=== PATIENT | female | born 1955 | race Caucasian/White ===

== ENCOUNTER 2017-01-12 06:25 | Day surgery (SDC) | payer OTHER ==
--- NOTE | 2017-01-01 09:17 | HP ---
HISTORY AND PHYSICAL: DATE OF SURGERY/ADMISSION: 01/12/17 [facility] DATE OF OFFICE VISIT: 12/28/16 ATTENDING SURGEON: Dr. Poon. (DICTATED BY CHRISTINE AGUILAR) PROCEDURE: Left carpal tunnel release. CHIEF COMPLAINT: Left hand pain. HISTORY OF PRESENT ILLNESS: The patient is a pleasant 61-year-old female with a known history of carpal tunnel in her left hand, who has failed conservative treatments such as brace, NSAIDs, and has elected to undergo left carpal tunnel release by Dr. Poon on 01/12/17. PAST MEDICAL HISTORY: 1. Hypothyroidism. 2. Elevated cholesterol. 3. GERD. 4. Generalized osteoarthritis. PAST SURGICAL HISTORY: 1. Complex medial meniscal tear, right. 2. Tubal ligation. 3. Ear tubes. 4. Appendectomy. MEDICATIONS: 1. Naproxen 500 mg 1 tablet by mouth p.r.n. b.i.d. 2. Knee high compression stockings. 3. Levothyroxine 75 mcg 1 tablet q.a.m. 4. Lovastatin 20 mg p.o. daily. 5. 50 mg one-half tablet daily at bedtime. ALLERGIES: SULFA DRUGS. FAMILY HISTORY: Mother alive and well. Father due to heart disease. SOCIAL HISTORY: Positive for tobacco use approximately one-half pack per week. Negative for alcohol use. REVIEW OF SYSTEMS: General: Negative for fever, chills, or night sweats. No difficulty with anesthesia. HEENT: Negative for headache, lightheadedness, or syncopal episodes. Integument: Negative for abrasions, lesions, or open wounds or sores. Cardiothoracic: Negative for hypertension, chest pain. Positive for elevated cholesterol. Pulmonary: Negative for SOB, chronic cough , or COPD. GI: Negative for nausea, vomiting, constipation, or diarrhea. Positive for GERD. : Negative for nocturia, urinary frequency, urgency. No history of UTIs or kidney problems. Musculoskeletal: Positive for generalized arthritis and back pain. Positive for left hand pain. Neuro: Positive for paraesthesias and numbness on the left hand. Hematologic: Negative for bruising, anemia, excessive bleeding, or DVT. Endocrine: Positive for thyroid. Negative for diabetes. Infectious Disease: Negative for MRSA, hepatitis C, or HIV. PHYSICAL EXAMINATION GENERAL: Well appearing, in no acute distress. Alert and oriented x3. VITAL SIGNS: Height 64 inches, weight 174 pounds, pulse 88, blood pressure 130/ 90. Respirations 18, temperature 96.7, BMI of 29.9. CARDIO: Regular rate and rhythm. No murmurs, gallops or rubs. PULMONARY: Lungs clear to auscultation bilaterally. No crackles, rhonchi or wheezes. ABDOMEN: Soft, nontender, nondistended. No CVA tenderness bilaterally. NEUROLOGIC: Alert and oriented x3. Cranial nerves grossly intact. Sensation intact to light touch in bilateral upper extremities. MUSCULOSKELETAL: Radial and ulnar pulses 3+ bilaterally. Good pharmacist manager strength bilaterally. Full range of motion in bilateral thumbs. Cap refill less than 2 seconds bilaterally. IMPRESSION: The patient is a 61-year-old female who has failed conservative measures and has elected to undergo left carpal tunnel release by Dr. Poon on 01/12/17. Scripts for [place] and Colace were sent to patient's pharmacy for postoperative pain management. She will follow up with Dr. Poon in approximately 10 days postoperatively for suture removal and wound check. She has no other questions or concerns. CHRISTINE AGUILAR [id number]/[facility] #: [id number] MTDD
[~2017-01-12 06:25] MED LIST: Buffered Lidocaine 0.9% SYRIN* 5 ML/SYR SYRINGE INTRADERM ONE
[2017-01-12] MEDS ORDERED: Lidocaine 2% PF * 5 ML VIAL ONE (07:08)
[2017-01-12] MEDS ORDERED: Propofol* 10 MG/ML 20 ML BTL IV PUSH ONE (07:08)
[2017-01-12] MEDS ORDERED: fentaNYL* 50 MCG/ML 2 ML VIAL (100 MCG VIAL) ONE (07:08)
[2017-01-12] MEDS ORDERED: Lidocaine 1% INJ* 10 MG/ML 30 ML SDV ONE (07:20)
[2017-01-12 08:25] VITALS: BP 137/77
--- NOTE | 2017-01-13 06:32 | OP ---
DATE OF OPERATION: 01/12/17 [facility] DATE OF : 59 SURGEON: Dilia Poon MD [employer] OPERATOR: CHRISTINE Matute ANESTHESIA: Local MAC. PRE-OP DIAGNOSIS: Left carpal tunnel syndrome. POST-OP DIAGNOSIS: Left carpal tunnel syndrome. OPERATIVE PROCEDURE: Left carpal tunnel release. ESTIMATED BLOOD LOSS: Zero. TOURNIQUET TIME: About 5 minutes. INDICATIONS FOR PROCEDURE: Anabel is a 61-year-old woman with numbness and tingling in the median nerve distribution of her left hand. She presents for the left carpal tunnel release. DESCRIPTION OF PROCEDURE: The patient was brought to the operating room, was given a sedation anesthetic and a local infiltration of 10 cc of 1% plain lidocaine. The skin of the left hand and forearm were prepped and draped in the usual sterile fashion. The hand and forearm were exsanguinated and the tourniquet elevated to 250 mmHg. A longitudinal incision was made in the palm in line with the ring finger, we dissected through the subcutaneous tissue down to the transverse carpal ligament. The ligament was incised sharply with the knife and then more proximally with the scissors. The nerve was dissected free from the surrounding tissue and there is an area of moderate compression at the mid portion of the ligament. The wound was irrigated and the skin edges reapproximated with 4-0 nylon suture. The wound was dressed with Xeroform, 4x4 , Webril, and an Nomi wrap. The patient tolerated the procedure well, was brought to the recovery room in good condition. [id number]/[facility] #: [id number] [facility]
== END 2017-01-12 08:34 | disposition home or self-care (01) ==
LOC: OREAST 06:25
PROVIDERS: ATTEND Orthopaedic Surgery
DX: G56.02 Carpal tunnel syndrome, left upper limb (principal); J45.909 Unspecified asthma, uncomplicated; E03.9 Hypothyroidism, unspecified; E78.00 Pure hypercholesterolemia, unspecified; Z88.2 Allergy status to sulfonamides; F17.210 Nicotine dependence, cigarettes, uncomplicated
CPT/HCPCS: J2001; J2704; J3010

== ENCOUNTER 2017-04-25 09:47 | Emergency (ER) | payer SELFPAY ==
--- NOTE | 2017-04-25 10:59 | UC ---
Minor Trauma HPI - HPI Summary HPI Summary: 61F presents with left sided rib pain for 2 days. She states that she tripped and landed on her left rib two days ago. She denies any head injury. she denies any LOC. She states hurts when takes a deep breath but no SOB. no abdominal pain. no nausea or vomiting. no blood in stool. has not taken anything for pain. - History of Current Complaint Chief Complaint: UCTrauma Stated Complaint: RIB INJURY Time Seen by Provider: 04/25/17 10:41 - Allergies/Home Medications Allergies/Adverse Reactions: Allergies Allergy/AdvReac Type Severity Reaction Status Date / Time Sulfa Antibiotics Allergy Mild Hives Verified 01/12/17 06:53 PMH/Surg Hx/FS Hx/Imm Hx Endocrine History: Hypothyroidism Cardiovascular History: Hypertension - Surgical History Surgical History: Yes Surgery Procedure, Year, and Place: TONSILLECTOMY 1962 [facility]. TUBES IN EARS 1972 [facility]. APPENDECTOMY 1992 [facility]. TUBAL LIGATION 1981 [facility] [place]. RIGHT KNEE SURG MENISCAL TEAR 06/06 [facility] [place] - Family History Known Family History: Positive: Cardiac Disease - Social History Alcohol Use: None Substance Use Type: None Smoking Status (MU): Light Every Day Tobacco Smoker Amount Used/How Often: SOCIAL SMOKER 10 CIGS/WEEK FOR 20 YRS OFF AND ON Length of Time of Smoking/Using Tobacco: 10 YRS Have You Smoked in the Last Year: Yes When Did the Patient Quit Smoking/Using Tobacco: 2004 Review of Systems Constitutional: Negative Cardiovascular: Other - rib pain All Other Systems Reviewed And Are Negative: Yes Physical Exam Triage Information Reviewed: Yes Appearance: Well-Appearing Vital Signs: Initial Vital Signs Temp 98.2 F 04/25/17 10:03 Pulse 76 04/25/17 10:03 Resp 16 04/25/17 10:03 BP 144/81 04/25/17 10:03 Pulse Ox 100 04/25/17 10:03 Vital Signs Reviewed: Yes Eyes: Positive: Conjunctiva Clear Respiratory: Positive: Lungs clear, Normal breath sounds, Other: - tenderness over left lateral ribs 7-9 Cardiovascular: Positive: RRR Abdomen Description: Positive: Nontender, Soft Bowel Sounds: Positive: Present Musculoskeletal Exam: Normal Neurological Exam: Normal Psychological Exam: Normal Skin Exam: Normal Diagnostics - Radiology No standard instances Xray Interpretation: Positive (See Comments) - possible 8th rib fracture nondisplaced Radiology Interpretation Completed By: Radiologist Minor Trauma Course/Dx - Course Course Of Treatment: 61F presents with left sided rib pain for 2 days. She states that she tripped and landed on her left rib two days ago. She denies any head injury. she denies any LOC. She states hurts when takes a deep breath but no SOB. no abdominal pain. no nausea or vomiting. no blood in stool. has not taken anything for pain. tender over ribs 7-9 on left lateral ribs. lungs CTA. xray shows possible rib fracture. will have follow up with primary about blood pressure in 5 days. medications reviewed. patient understands and agrees with plan. - Differential Dx/Diagnosis Differential Diagnosis/HQI/PQRI: Contusion(s), Fracture, Sprain Provider Diagnoses: rib fracture Discharge - Discharge Plan Condition: Good Disposition: HOME Patient Education Materials: Rib Fracture (ED) Forms: *Work Release Referrals: Verenice Bonilla [Primary Care Provider] - Additional Instructions: Take Tylenol every [address] ice on area Take deep breath throughout day Follow up with primary within 7 days Return to ED if develop any productive cough or any new or worsening symptoms
--- NOTE | 2017-04-25 11:29 | RAD ---
INDICATION: Left rib injury. COMPARISON: Comparison is made with a prior chest x-ray study from May 21, 2015. TECHNIQUE: 4 views of the left ribs and a PA view of the chest was obtained. FINDINGS: There is a focal area of cortical irregularity present along the left lateral eighth rib suspicious for a nondisplaced fracture. No other fractures are seen. The heart is within normal limits in size. The lungs are clear. There is no evidence for pneumothorax or pleural effusion. IMPRESSION: PROBABLE NONDISPLACED FRACTURE OF THE LEFT LATERAL EIGHTH RIB.
[2017-04-25 11:51] VITALS: BP 136/95
== END 2017-04-25 12:01 | disposition home or self-care (01) ==
LOC: UCEAST 09:47
DX: S22.31XA Fracture of one rib, right side, initial encounter for closed fracture (principal); W01.0XXA Fall on same level from slipping, tripping and stumbling without subsequent striking against object, initial encounter; Y93.9 Activity, unspecified; Y92.9 Unspecified place or not applicable; Y99.9 Unspecified external cause status; Z88.2 Allergy status to sulfonamides
CPT/HCPCS: 99212; G0463

== ENCOUNTER 2017-11-15 23:38 | Emergency (ER) | payer OTHER ==
--- NOTE | 2017-11-16 00:51 | ED ---
Adult Trauma - HPI Summary HPI Summary: Complains of mechanical fall tonight from standing off a loading dock 3-4 feet off the ground with subsequent right-sided pain, right knee pain, left elbow pain. Denies LOC, LA, N/V, vision change, neck pain, change in mental status, trauma to teeth or tongue, jaw pain, right approximately pain, left lower extremity pain, chest wall pain, back pain, hip pain, abdominal pain. Medical history is asthma, hypothyroid, HDL, as reflux. - History of Current Complaint Chief Complaint: EDHeadInjury Stated Complaint: PAIN/FALL Time Seen by Provider: 11/16/17 00:38 Hx Obtained From: Patient Mechanism of Injury: Fall Ambulatory at the Scene: No Loss of Consciousness: no loss of consciousness Force: Medium Onset of Pain: Immediate Onset Severity: Moderate Current Severity: Moderate Pain Intensity: 7 Pain Scale Used: 0-10 Numeric Location: Head, Extremities Character: Aching, Sharp Aggravating Factor(s): Nothing Alleviating Factor(s): Nothing - Allergy/Home Medications Allergies/Adverse Reactions: Allergies Allergy/AdvReac Type Severity Reaction Status Date / Time Sulfa (Sulfonamide Allergy Hives Verified 11/15/17 23:56 Antibiotics) PMH/Surg Hx/FS Hx/Imm Hx Endocrine/Hematology History: Reports: Hx Thyroid Disease - HYPO Denies: Hx Diabetes Cardiovascular History: Reports: Other Cardiovascular Problems/Disorders - HIGH CHOLESTEROL Denies: Hx Hypertension, Hx Pacemaker/ICD Respiratory History: Reports: Hx Asthma GI History: Reports: Hx Gastroesophageal Reflux Disease - WELL CONTROLLED, Hx Hiatal Hernia - NOT DX, BUT CHIROPRACTOR THINKS SHE HAS, Hx Irritable Bowel - OCCASIONAL FLARE UPS History: Reports: Other Problems/Disorders - FREQUENCY, OAB Denies: Hx Renal Disease Musculoskeletal History: Reports: Hx Arthritis - BILAT KNEES, BACK, Other Musculoskeletal History - 2 MONTHS AGO RIGHT KNEE LIGAMENT STRAIN- CORTISONE INJ 12/29/16 Sensory History: Reports: Hx Contacts or Glasses - READING GLASSES Denies: Hx Hearing Aid Opthamlomology History: Reports: Hx Contacts or Glasses - READING GLASSES Neurological History: Reports: Other Neuro Impairments/Disorders - LEFT CTS FOR PAST SEVERAL YRS Psychiatric History: Reports: Hx Anxiety - MILD Denies: Hx Panic Disorder - Cancer History Hx Chemotherapy: No Hx Radiation Therapy: No - Surgical History Surgery Procedure, Year, and Place: TONSILLECTOMY 1963 [facility]. TUBES IN EARS 1972 [facility]. APPENDECTOMY 1992 [facility]. TUBAL LIGATION 1981 [facility] [place]. RIGHT KNEE SURG MENISCAL TEAR 06/06 [facility] Hx Anesthesia Reactions: No - Immunization History Date of Tetanus Vaccine: utd Date of Influenza Vaccine: utd Infectious Disease History: No Infectious Disease History: Denies: Hx Hepatitis, Traveled Outside the [place] in Last 30 Days - Family History Known Family History: Positive: Cardiac Disease - Social History Alcohol Use: Rare Substance Use Type: Reports: None Hx Tobacco Use: Yes Smoking Status (MU): Light Every Day Tobacco Smoker Amount Used/How Often: SOCIAL SMOKER 10 CIGS/WEEK FOR 20 YRS OFF AND ON Length of Time of Smoking/Using Tobacco: 10 YRS Have You Smoked in the Last Year: Yes Review of Systems Constitutional: Negative Eyes: Negative ENT: Negative Cardiovascular: Negative Respiratory: Negative Gastrointestinal: Negative Genitourinary: Negative Positive: Arthralgia Skin: Negative Neurological: Negative Psychological: Normal All Other Systems Reviewed And Are Negative: Yes Physical Exam - Summary Physical Exam Summary: Pain with palpation of right knee, limited range of motion. No obvious deformity, ecchymosis, erythema, extra warmth to right knee. Patient able to flex and extend left elbow without indication of pain, large hematoma to the left medial elbow. Hematoma to right posterior head, with tenderness to palpation. Neuro exam normal. Full range of motion of neck. No pain with palpation of back, chest wall, abdomen, right upper extremity, left lower extremity, hip or pelvis. Triage Information Reviewed: Yes Vital Signs On Initial Exam: Initial Vitals Temp Pulse Resp BP Pulse Ox 99.1 F 94 16 152/91 100 11/15/17 23:55 11/15/17 23:55 11/15/17 23:55 11/15/17 23:55 11/15/17 23:55 Vital Signs Reviewed: Yes Appearance: Positive: Well-Appearing Skin: Positive: Warm Head/Face: Positive: Normal Head/Face Inspection Eyes: Positive: Normal Neck: Positive: Supple Respiratory/Lung Sounds: Positive: Clear to Auscultation Cardiovascular: Positive: Normal Abdomen Description: Positive: Nontender Musculoskeletal: Positive: Normal Neurological: Positive: Normal Psychiatric: Positive: Normal AVPU Assessment: Alert - [place] Coma Scale Best Eye Response: 4 - Spontaneous Best Motor Response: 6 - Obeys Commands Best Verbal Response: 5 - Oriented Coma Scale Total: 15 Diagnostics - Vital Signs Vital Signs Temp Pulse Resp BP Pulse Ox 11/15/17 23:55 99.1 F 94 16 152/91 100 - Laboratory Lab Statement: Any lab studies that have been ordered have been reviewed, and results considered in the medical decision making process. - Radiology knee Xray Interpretation: Positive (See Comments) - tibial plateau fracture Radiology Interpretation Completed By: ED Physician elbow Xray Interpretation: No Acute Changes Radiology Interpretation Completed By: ED Physician - CT head CT Interpretation: No Acute Changes CT Interpretation Completed By: Radiologist Adult Trauma Course/Dx - Diagnoses Provider Diagnoses: Tibial plateau fracture, right - Physician Notifications Discussed Care Of Patient With: Sacha Jackson - ortho Time Discussed With Above Provider: 01:46 - recommends knee immoboilizer and crutches, f/up in clinic Discharge - Sign-Out/Discharge Documenting (check all that apply): Discharge/Admit/Transfer - Discharge Plan Condition: Stable Disposition: HOME Prescriptions: Oxycodone HCl 5 mg PO Q6HR PRN 4 Days #16 tablet MDD 20-40mg PRN Reason: Pain Patient Education Materials: Leg Fracture (ED) Referrals: Verenice Bonilla [Primary Care Provider] - Sacha Jackson MD [Medical Doctor] - - Billing Disposition and Condition Condition: STABLE Disposition: HOME
[2017-11-16] MEDS ORDERED: Morphine VIAL* 10 MG/ML 1 ML VIAL IV ONE (01:40)
[2017-11-16] MEDS ORDERED: oxyCODONE TAB* 5 MG TAB PO ONE (02:27)
[2017-11-16 03:26] VITALS: BP 169/96
--- NOTE | 2017-11-16 05:33 | ED ---
Progress - Progress Note Progress Note: I supervised the care of the physician speech language pathology assistant and performed a history and physical on this patient. History: Fall off a loading dock injuring her head and right knee area. Unable to bear weight. Physical exam: Alert, oriented and neurologically intact. No significant evidence for concussive injury. Right knee with lateral side anterior tibial swelling and tenderness. Knee held in slight flexion. Plan: Lateral side tibial plateau fracture confirmed on x-ray with some inferior displacement. Discussed with orthopedist who wished her to be in knee immobilizer and on crutches. He will follow her up in the office tomorrow. Course/Dx - Diagnoses Provider Diagnoses: Tibial plateau fracture, right - Provider Notifications Time Discussed With Above Provider: 01:46 - recommends knee immoboilizer and crutches, f/up in clinic Discharge - Sign-Out/Discharge Documenting (check all that apply): Discharge/Admit/Transfer - Discharge Plan Condition: Stable Disposition: HOME Prescriptions: Oxycodone HCl 5 mg PO Q6HR PRN 4 Days #16 tablet MDD 20-40mg PRN Reason: Pain Patient Education Materials: Leg Fracture (ED) Referrals: Verenice Bonilla [Primary Care Provider] - Sacha Jackson MD [Medical Doctor] - - Billing Disposition and Condition Condition: STABLE Disposition: HOME
--- NOTE | 2017-11-16 07:55 | RAD ---
HISTORY: Fall, left elbow pain COMPARISONS: None VIEWS: 4, Frontal, lateral, and oblique views of the left elbow FINDINGS: BONE DENSITY: Normal. BONES: There is no displaced fracture. JOINTS: There is no arthropathy. ALIGNMENT: There is no dislocation. SOFT TISSUES: There is soft tissue swelling over the medial (ulnar) aspect of the elbow. OTHER FINDINGS: None. IMPRESSION: SOFT TISSUE SWELLING. NO ACUTE OSSEOUS INJURY. IF SYMPTOMS PERSIST, RECOMMEND REPEAT IMAGING.
--- NOTE | 2017-11-16 07:56 | RAD ---
HISTORY: Fall, right knee pain COMPARISONS: September 13, 2016 VIEWS: 2, Frontal and lateral views of the right knee FINDINGS: BONE DENSITY: Normal. BONES: There is a longitudinally oriented minimally displaced fracture of the proximal tibial metaphysis extending to the articular surface of the lateral tibial condyle. JOINTS: There is no arthropathy. There is large joint effusion. ALIGNMENT: There is no dislocation. SOFT TISSUES: Unremarkable. OTHER FINDINGS: None. IMPRESSION: LONGITUDINALLY ORIENTED, MINIMALLY DISPLACED, LATERAL TIBIAL PLATEAU FRACTURE
--- NOTE | 2017-11-16 07:57 | RAD ---
INDICATION: Head injury. COMPARISON: There are no prior studies available for comparison. TECHNIQUE: Contiguous axial sections of the brain were obtained from the skull base to the vertex without contrast. FINDINGS: The ventricles, cisterns and sulci are within normal limits. No significant focal abnormality or mass effect is seen. There is no evidence for hemorrhage. There is focal soft tissue swelling adjacent to the posterior aspect of the right parietal bone. No fracture is seen. The visualized portion appeared nasal sinuses appear clear. IMPRESSION: NO EVIDENCE FOR ACUTE INTRACRANIAL ABNORMALITY.
== END 2017-11-16 03:24 | disposition home or self-care (01) ==
LOC: ED 23:38
DX: S82.141A Displaced bicondylar fracture of right tibia, initial encounter for closed fracture (principal); M25.522 Pain in left elbow; F17.210 Nicotine dependence, cigarettes, uncomplicated; W17.89XA Other fall from one level to another, initial encounter; Y92.89 Other specified places as the place of occurrence of the external cause; E03.9 Hypothyroidism, unspecified; E78.5 Hyperlipidemia, unspecified; K21.9 Gastro-esophageal reflux disease without esophagitis; J45.909 Unspecified asthma, uncomplicated; E78.00 Pure hypercholesterolemia, unspecified; Z88.2 Allergy status to sulfonamides
CPT/HCPCS: 70450; 96374; 99283; A9270-GY; J2270

== ENCOUNTER 2017-11-22 07:27 | Inpatient (IN) | payer OTHER ==
[~2017-11-22 07:27] MED LIST changes: +Dexamethasone IV* 4 MG/ML 1 ML (4 MG) IV SLOW PU ONE; +Famotidine TAB* 20 MG PO ONE
--- OUTSIDE RECORDS SUMMARY | 2017-11-22 07:37 | XMS REPORT ---
:1955 External Reference #:[id number] Author Organization [facility] Address [address] [address] Phone [phone] Care Team Providers Name Role Phone Nasra Herrera MD Care Team Information System Designer Unavailable Payers Type Date Identification Numbers Payment Provider Subscriber Commercial Policy Number: [id number] Abhishek Pinzon PayID: [id number] [address] [place] [address] Workers Compensation Effective: 2007 Policy Number: [id number] Rafita Pinzon Onset: 2007 PayID: [id number] [address] [place] [address] Workers Compensation Effective: Policy Number: Trey Pinzon 2001 [id number] Onset: 2001 PayID: [id number] [address] [address] [place] [address] Workers Compensation Onset: 2016 Policy Number: Trey Pinzon [id number] PayID: [id number] [facility] [place] [address] Workers Compensation Onset: 2017 Policy Number: Trey Pinzon [id number] PayID: [id number] [facility] [place] [address] Problems Date Description Provider Status Onset: 09/12/2007 Allergic rhinitis due to pollen Verenice Bonilla RN MS [employer] Active Onset: 09/12/2007 Pure hypercholesterolemia Verenice Bonilla RN MS [employer] Active Onset: 01/01/2013 Hypothyroidism Jody Argueta MD Active Onset: 01/01/2013 Female stress incontinence Jody Argueta MD Active Onset: 01/01/2013 Gastroesophageal reflux disease Jody Argueta MD Active Family History Date Family Member(s) Problem(s) Comments Father Good Health Mother Hypertension Mother Osteoporosis Paternal Grandfather due to [place] () Paternal Grandmother due to OH () Maternal Grandfather due to OH () Maternal Grandmother OH Maternal Grandmother due to [place] () Maternal Grandmother Arthritis Maternal Grandmother Diabetes, Adult Maternal Aunts Cancer, Breast Social History Type Date Description Comments Occupation Curriculum Developer [place] Cigarette Use Patient is a current cigarette smoker, smokes every day ETOH Use Denies alcohol use Daily Caffeine Consumes on average 1 cup of coffee per day Allergies, Adverse Reactions, Alerts Date Description Reaction Status Severity Comments 09/12/2007 Sulfa Drugs active Medications Medication Date Status Form Strength Qnty SIG Indications Ordering Provider Sertraline HCL 06/27/ Active Tablets 50mg 90tabs 1 tab at F41.1 Irene2016 bedtime Verenice Ferreira RN MS [employer] Crestor 05/29/ Active Tablets 10mg 45tabs 1/2 by E78.00 Irene, 2016 mouth every Verenice day DONNA Ferreira MS [employer] Proventil HFA 05/16/ Active Aerosol 108(90Base 1units 1 puff 3 J45.20 Irene, 2016 ) mcg/Act times/day Verenicealvin Ferreira RN MS [employer] Dicyclomine HCL 02/15/ Active Capsules 10mg 30caps one tab up Irene, 2015 to 4 times Verenice daily as DONNA Ferreira MS needed for [employer] ibs sx Hydroxyzine HCL 11/25/ Active Tablets 10mg 30tabs take 1-3 F41.1 [place] , 2015 tablets by Verenice mouth every DONNA Ferreira MS 6 hours as [employer] needed for anxiety may take up to 5 tablets by mouth at bedtime for sleep Levothyroxine 11/21/ Active Tablets 75mcg 90tabs 1 by mouth E03.9 Irene, 2012 every Verenice morning DONNA Ferreira MS [employer] Ibuprofen 11/15/ Active Tablets 800mg 90tabs 1 by mouth M25.561 Irene, 2010 three times Verenice a day with DONNA Ferreira MS food [employer] Fexofenadine 02/10/ Active Tablets 180mg 30tabs take 1 J45.20 JOHN Bonilla 2009 tablet by Verenice mouth every C, RN MS day as [employer] needed for allergies J30.9 Multi Vitamin 09/12/2007 Active Verenice Bonilla, RN MS [employer] Prilosec OTC Active Tablets DR 20mg 30tabs 1 by mouth K Irene, every day 2 Verenice 1 C, RN MS . [employer] 9 Culturelle Active Capsules 1 by mouth Unknown Digestive every day Health Probiotic Fish Oil Active Capsules DR 1000mg 2 daily by Unknown mouth Calcium 1200 Active Chewtabs 1200-100 1 by mouth Unknown 0mg-Unit every day Vitamin D Active Tablets 1000Unit 1 by mouth E Unknown (Cholecalcifero every day 5 l) 5 . 9 Meclizine HCL 06/07/2017 - Hx Tablets 25mg 30tabs take 1- 2 tabs Lui Bonilla, 11/19/2017 at night if 8 Verenice needed for 1 C, RN MS vertigo till . [employer] sx are gone. 1 3 Return To Work 05/16/2017 - Hx seen today and Vito Bonilla, 05/22/2017 is able to 0 Verenice return to work 1 C, RN MS , full duty . [employer] tommorrow. 4 05/17/17 1 9 Out Of Work For 05/03/2017 - Hx 05/03- 05/17, Myrtle Bonilla, Medical Reasons 06/07/2017 returning to 2 Verenice full duty on 2 C, RN MS 05/18/17 . [employer] 3 2 x D Ciprofloxacin 04/11/2017 - Hx Tablets 500mg 20tabs 1 by mouth R Macadam , HCL 04/21/2017 twice a day 1 Nasra for 10days 9 MD Preeti Maynard 7 Metronidazole 04/11/2017 - Hx Tablets 500mg 30tabs 1 by mouth R Sharon , 04/21/2017 three times a 1 Nasra day for 10days 9 MD Caesar . 7 Zostavax 09/27/2016 - Hx Solution Rec [id number] 1units one time Vito Bonilla , 11/19/2017 /0.65ML intramuscular 2 Verenice injection 3 C, RN MS [employer] Fluticasone 03/10/2016 - Hx Suspension 50mcg/Ac 15.800ml one spray per J Irene, Propionate 11/19/2017 t each nostril 3 Verenice every day 0 DONNA Ferreira MS . [employer] 9 Ranitidine HCL 03/10/2016 - Hx Capsules 300mg 90caps 1 by mouth K [place], 09/27/2016 every day 2 Verenice 1 Hanna RN MS . [employer] 9 Ciclopirox 01/07/2016 - Hx Solution 8% 6.6units apply as B [place], 06/07/2017 directed to 3 Verenice toes as 5 Hanna, RN MS Directed . [employer] 1 Zoloft 10/27/2015 - Hx Tablets 50mg 30tabs 1/2 tab at F [place], 06/27/2017 bedtime 4 Verenice 1 Hanna RN MS . [employer] 1 No Work 01/03/2013 - Hx for medical [place], 10/14/2015 reasons ALL 7 Verenice day today. november 26 Hanna RN MS return to work . [employer] next sunday 9 01/06 Amoxicillin 01/03/2013 - Hx Tablets 875mg 20tabs 1 po bid [place], 01/17/2013 6 Verenice 1 Hanna RN MS . [employer] 1 Detrol LA 07/11/2012 - Hx Caps ER 24HR 4mg Samples One Daily 6 [place], 10/14/2015 2 Verenice 5 Hanna, RN MS . [employer] 6 Anusol-HC 07/10/2012 - Hx Suppository 25mg 14units insert one pr 5 [place], 05/16/2017 1-2- times per 6 Verenice day for 1 week 9 Hanna RN MS . [employer] 4 9 Montelukast 2012 - Hx Tablets 10mg 30tabs take 1 tablet [place], Sodium 10/14/2015 by mouth once Verenice daily if C, RN MS needed [employer] Amoxicillin 05/16/2012 - Hx Tablets 875mg 28tabs 1 po bid X 14 4 [place] , 05/26/2012 days 6 Verenice 1 Hanna RN MS . [employer] 0 No Work 05/16/2012 - Hx D/T 05/14/12 4 [place], 05/26/2012 Illness 6 Verenice 1 Hanna RN MS . [employer] 0 Singulair 02/27/2012 - Hx Tablets 10mg 30tabs 1 po qd prn [place], 2012 Verenice C, RN MS [employer] Fluticasone 02/07/2012 - Hx Suspension 50mcg/Ac 1units Two sprays per 4 [place], Propionate 10/14/2015 t each nostril 7 Verenice qd 7 C, RN MS . [employer] 9 Lovastatin 12/21/2011 - Hx Tablets 20mg 90tabs take 1 tablet E [place], 05/29/2017 by mouth once 7 Verenice daily 8 C, RN MS . [employer] 0 Lansoprazole 11/06/2011 - Hx Capsules DR 30mg 90caps take 1 capsule 7 [place], 01/03/2013 by mouth once 8 Verenice daily 9 C, RN MS . [employer] 0 6 Medical 09/12/2011 - Hx 7 [place], Appointment 09/22/2011 2 Verenice Today..Was 4 C, RN MS Delayed . [employer] 2 Optivar 07/13/2011 - Hx Solution 0.05% 1units 1-2 GTT Each [place], 10/14/2015 Eye bid 6 Verenice 5 C, RN MS . [employer] 9 Meloxicam 07/12/2011 - Hx Tablets 7.5mg 30tabs 1 po qd [place], 09/12/2011 2 Verenice 4 C, RN MS . [employer] 2 Lidoderm 07/12/2011 - Hx Patches 5% 1Box apply patch [place], 12/27/2011 daily as 2 Verenice directed.leave 4 C, RN MS on for 12 . [employer] hours/day 2 only. may cut to fit tender area. Elocon 07/06/2011 - Hx Cream 0.1% 15gm apply bid X 7 [place], 12/27/2011 Days 8 Verenice 2 C, RN MS . [employer] 1 Azithromycin 07/06/2011 - Hx Tablets 250mg 6tabs 2 tabs day one [place], 09/12/2011 and 1 tab 6 Verenice daily till 5 C, RN MS gone . [employer] 9 Patanase 07/06/2011 - Hx Solution 0.6% 1units one squirt bid [place], 07/13/2011 for nasal sx 6 Verenice 5 C, RN MS . [employer] 9 Amoxicillin 06/14/2011 - Hx Tablets 875mg 20tabs 1 po bid [place], 06/24/2011 6 Verenice 1 C, RN MS . [employer] 0 Pantoprazole 05/04/2011 - Hx Tablets DR 40mg 90tabs 1 po qd 7 [place], Sodium 05/04/2011 8 Verenice 9 C, RN MS . [employer] 0 6 Prevacid 05/04/2011 - Hx Capsules DR 30mg 90caps 1 po qd 7 [place], 11/06/2011 8 Verenice 9 C, RN MS . [employer] 0 6 Omeprazole 08/23/2010 - Hx Capsules DR 40mg 30caps Take One , 05/04/2011 Capsule By 8 Verenice Mouth Every 9 C, RN MS Day . [employer] 0 6 Nexium 08/09/2010 - Hx Packet 40mg samples 1 po qd prn 7 [place], 08/19/2010 8 Verenice 9 C, RN MS . [employer] 0 6 Proventil HFA 02/10/2010 - Hx Aerosol 108(90Ba 1units 1 puff 3 4 [place], 05/16/2017 se) times/day 9 Nasra mcg/angela Maynard MD . 0 0 Symbicort 02/10/2010 - Hx Aerosol 80-4.5mc 1units 2 puffs bid 4 Irene, 08/09/2010 g/Act 9 Verenice 3 C, RN MS . [employer] 0 0 Citalopram 12/01/2009 - Hx Tablets 10mg 30tabs 1/2 for 1 week 2 [place], Hydrobromide 08/23/2010 Then November 9 Verenice Increase 1 Tab 6 C, RN MS qd . [employer] 3 1 Alprazolam 12/01/2009 - Hx Tablets 0.25mg 6tabs 1/2-1 tab 2 , 08/23/2010 every 8 hours 9 Verenice as needed for 6 C, RN MS anxiety . [employer] 3 1 Amoxicillin 09/07/2009 - Hx Tablets 875mg 20tabs 1 po bid 4 Irene, 09/17/2009 6 Verenice 5 C, RN MS . [employer] 9 Elocon 04/08/2009 - Hx Cream 0.1% 15gm apply bid prn 7 [place], 08/23/2010 8 Verenice 2 C, RN MS . [employer] 1 Lidocaine 01/05/2009 - Hx Solution 2% 1smallBo garlgle and 5 Irene, Viscous 04/08/2009 ttle spit bid prn 1 2 Verenice -2 tsp full 8 C, RN MS bid-tid . [employer] 3 Medrol Dosepak 01/05/2009 - Hx Tablets 4mg 1tabs use as 5 , 01/25/2009 directed 2 Verenice 8 C, RN MS . [employer] 3 Proventil HFA 11/30/2008 - Hx Aerosol 108mcg/A 1units 2 puffs q 4 4 Irene, 09/07/2009 ct hrs prn 9 Verenice wheezing 3 C, RN MS . [employer] 0 0 Nizoral 11/30/2008 - Hx 2% Cream 1units apply bid as 5 , 08/23/2010 needed to 6 Verenice rectal area 9 C, RN MS . [employer] 4 9 Fluticasone 10/19/2008 - Hx Suspension 50mcg/Ac 1units one spray per 4 , Propionate 08/23/2010 t each nostril 7 Verenice qd 7 C, RN MS . [employer] 9 Needs Reduced 10/19/2008 - Hx D/T May not do 7 , Work Schedule 04/08/2009 Illness over time and 8 Verenice For Next Few should be 0 C, RN MS Months allowed to . [employer] take time off 7 as needed when 9 over tired Lovastatin 08/05/2008 - Hx Tablets 40mg 90tabs 1 po qd [place], 12/21/2011 Verenice C, RN MS [employer] No Work 06/23/2008 - Hx D/T 06/24/08 4 Irene, 10/19/2008 Illness 6 Verenice 5 C, RN MS . [employer] 9 Azithromycin 06/23/2008 - Hx Tablets 250mg 6tabs 2 Tabs Day One 4 Irene, 07/03/2008 And 1 Tab 6 Verenice Daily Till 5 C, RN MS Gone . [employer] 9 Simvastatin 12/19/2007 - Hx Tablets 20mg 90tabs one tablet [place], 08/05/2008 before bed Verenice C, RN MS [employer] Advair Diskus 11/27/2007 - Hx Misc 100/50 1units 1 puff PO bid 4 [place] , 06/23/2008 9 Verenice 3 C, RN MS . [employer] 0 0 Fexofenadine 11/27/2007 - Hx Tablets 180mg 30tabs 1 Tab Daily as 4 Irene, HCL 10/19/2008 Needed For 9 Verenice Allergies 3 C, RN MS . [employer] 0 0 Singulair 11/27/2007 - Hx Tablets 10mg 30tabs 1 po qd prn 4 [place], 06/23/2008 9 Verenice 3 C, RN MS . [employer] 0 0 Levoxyl 09/12/2007 - Hx Tablets 75mcg 90tabs 1 PO qam 2 [place], 11/21/2012 4 Verenice 4 Hanna, RN MS . [employer] 9 Zocor 09/12/2007 - Hx Tablets 20mg 30tabs 1 PO qd- [place], 12/19/2007 Generic Verenice Ferreira RN MS [employer] Calcium 09/12/2007 - Hx [place], 08/09/2010 Verenice Ferreira RN MS [employer] Zantac 09/12/2007 - Hx Tablets 75mg 1-2 X Day [place], 12/22/2010 Verenice Ferreira RN MS [employer] Melatin 09/12/2007 - Hx Tablets 6mg QHS [place], 10/19/2008 Verenice Ferreira RN MS [employer] Augmentin 09/12/2007 - Hx Tablets 500mg 28tabs 1 PO bid With 4 , 11/27/2007 Food till gone 6 Verenice 1 Hanna, RN MS . [employer] 0 Nasonex 09/12/2007 - Hx Suspension 50mcg/Ac 1units 2 [place] Each , 11/27/2007 t Side Daily At 6 Verenice Night 1 Hanna RN MS . [employer] 0 For Rhinitis Naproxen - Hx Tablets 500mg 1 by mouth M Unknown 08/11/2016 twice a day as 2 needed with 5 food . 5 6 1 Medications Administered in Office Medication Date Status Form Strength Qnty SIG Indications Ordering Provider PPD Administered Injection Nurses 1 Schedule Isabelle Immunizations CPT Code Status Date Vaccine Lot # [id number] Given 04/16/2017 Influenza Vac, 3 Yrs & Older, Quadrivalent, Split, Im Use [id number] Given 06/28/2009 Afluria Or Fluvirin Flu Vac Intramuscular [id number] Given 11/30/2008 Tdap (Adacel) Ages 7 And Above Only [id number] Given 11/30/2008 Tetanus And Diptheria Toxoids For Adult Use-preservative free [id number] Refused 05/19/2016 Influenza Vac, 3 Yrs & Older, Quadrivalent, Split, Im Use Vital Signs Date Vital Result Comment 11/19/2017 Heart Rate 100 /min BP Systolic 138 mmHg BP Diastolic 82 mmHg Height 64 inches 5'4" 06/07/2017 Weight 176.50 lb Heart Rate 85 /min BP Systolic 135 mmHg BP Diastolic 87 mmHg Height 64 inches 5'4" BMI (Body Mass Index) 30.3 kg/m2 05/16/2017 Weight 175.00 lb Heart Rate 78 /min BP Systolic 159 mmHg BP Diastolic 102 mmHg 05/03/2017 Weight 177.50 lb Heart Rate 80 /min BP Systolic 145 mmHg BP Diastolic 90 mmHg 04/11/2017 Weight 176.00 lb Heart Rate 96 /min BP Systolic 139 mmHg BP Diastolic 86 mmHg Height 64.25 inches 5'4.25" BMI (Body Mass Index) 30.0 kg/m2 11/24/2016 Weight 179.38 lb Heart Rate 81 /min BP Systolic 126 mmHg BP Diastolic 91 mmHg Height 64.25 inches 5'4.25" BMI (Body Mass Index) 30.5 kg/m2 09/27/2016 Weight 177.38 lb Heart Rate 80 /min BP Systolic 137 mmHg BP Diastolic 84 mmHg Height 64.25 inches 5'4.25" BMI (Body Mass Index) 30.2 kg/m2 08/11/2016 Weight 172.38 lb Heart Rate 82 /min BP Systolic 120 mmHg BP Diastolic 83 mmHg Height 64.25 inches 5'4.25" BMI (Body Mass Index) 29.4 kg/m2 05/19/2016 Weight 172.38 lb Heart Rate 80 /min BP Systolic 136 mmHg BP Diastolic 82 mmHg Height 64.25 inches 5'4.25" BMI (Body Mass Index) 29.4 kg/m2 03/10/2016 Body Temperature 97.2 F Weight 171.25 lb Heart Rate 93 /min BP Systolic 139 mmHg BP Diastolic 79 mmHg Height 64.25 inches 5'4.25" BMI (Body Mass Index) 29.2 kg/m2 01/07/2016 Body Temperature 97.8 F Weight 174.50 lb Heart Rate 82 /min BP Systolic 124 mmHg BP Diastolic 87 mmHg Height 64.25 inches 5'4.25" BMI (Body Mass Index) 29.7 kg/m2 11/26/2015 Weight 178.00 lb Heart Rate 91 /min BP Systolic 129 mmHg BP Diastolic 84 mmHg Height 64.25 inches 5'4.25" BMI (Body Mass Index) 30.3 kg/m2 10/27/2015 Weight 181.50 lb Heart Rate 91 /min BP Systolic 128 mmHg BP Diastolic 87 mmHg Height 64.25 inches 5'4.25" BMI (Body Mass Index) 30.9 kg/m2 10/14/2015 Weight 185.12 lb Heart Rate 95 /min BP Systolic 133 mmHg BP Diastolic 86 mmHg Height 64.25 inches 5'4.25" BMI (Body Mass Index) 31.5 kg/m2 01/03/2013 Body Temperature 97.4 F Weight 178.00 lb Heart Rate 82 /min BP Systolic 137 mmHg BP Diastolic 89 mmHg 08/14/2012 Weight 177.00 lb Heart Rate 87 /min BP Systolic 135 mmHg BP Diastolic 88 mmHg 07/10/2012 Weight 176.00 lb Heart Rate 99 /min BP Systolic 154 mmHg BP Diastolic 89 mmHg 05/16/2012 Weight 176.00 lb Heart Rate 87 /min BP Systolic 128 mmHg BP Diastolic 82 mmHg 02/27/2012 Weight 170.00 lb Heart Rate 84 /min BP Systolic 129 mmHg BP Diastolic 86 mmHg 02/07/2012 Body Temperature 96.9 F Weight 173.00 lb Heart Rate 75 /min BP Systolic 140 mmHg BP Diastolic 89 mmHg 12/27/2011 Weight 174.00 lb Heart Rate 73 /min BP Systolic 143 mmHg BP Diastolic 90 mmHg Height 64.75 inches 5'4.75" BMI (Body Mass Index) 29.2 kg/m2 09/12/2011 Weight 179.00 lb Heart Rate 86 /min BP Systolic 128 mmHg BP Diastolic 80 mmHg 07/12/2011 Weight 174.00 lb Heart Rate 73 /min BP Systolic 140 mmHg BP Diastolic 86 mmHg 07/06/2011 Weight 174.00 lb Heart Rate 77 /min BP Systolic 138 mmHg BP Diastolic 93 mmHg 06/14/2011 Body Temperature 97.9 F Weight 176.00 lb Heart Rate 85 /min BP Systolic 147 mmHg BP Diastolic 89 mmHg 05/04/2011 Weight 174.00 lb Heart Rate 72 /min BP Systolic 146 mmHg BP Diastolic 89 mmHg 12/22/2010 Weight 178.00 lb Heart Rate 75 /min BP Systolic 126 mmHg BP Diastolic 77 mmHg Height 64.75 inches 5'4.75" BMI (Body Mass Index) 29.8 kg/m2 11/15/2010 Weight 179.00 lb Heart Rate 79 /min BP Systolic 125 mmHg BP Diastolic 82 mmHg 08/23/2010 Weight 182.00 lb Heart Rate 88 /min BP Systolic 134 mmHg BP Diastolic 89 mmHg 08/09/2010 Body Temperature 97.6 F Weight 182.00 lb Heart Rate 82 /min BP Systolic 149 mmHg BP Diastolic 92 mmHg 02/10/2010 Weight 167.00 lb BP Systolic 128 mmHg BP Diastolic 83 mmHg 12/09/2009 Heart Rate 80 /min BP Systolic 136 mmHg BP Diastolic 85 mmHg 12/01/2009 Weight 174.00 lb Heart Rate 70 /min BP Systolic 142 mmHg BP Diastolic 90 mmHg Height 64.5 inches 5'4.50" BMI (Body Mass Index) 29.4 kg/m2 09/07/2009 Body Temperature 97.6 F Weight 172.00 lb Heart Rate 76 /min BP Systolic 124 mmHg BP Diastolic 78 mmHg 07/29/2009 Weight 179.00 lb Heart Rate 73 /min BP Systolic 142 mmHg BP Diastolic 86 mmHg 04/08/2009 Body Temperature 97.7 F Weight 170.00 lb Heart Rate 98 /min BP Systolic 146 mmHg BP Diastolic 98 mmHg 01/05/2009 Weight 169.00 lb Heart Rate 72 /min BP Systolic 122 mmHg BP Diastolic 85 mmHg 11/30/2008 Weight 172.00 lb Heart Rate 75 /min BP Systolic 126 mmHg BP Diastolic 88 mmHg Respiratory Rate 20 /min Height 65 inches 5'5" BMI (Body Mass Index) 28.6 kg/m2 10/19/2008 Body Temperature 98.0 F Weight 173.00 lb Heart Rate 80 /min BP Systolic 132 mmHg BP Diastolic 88 mmHg 06/23/2008 Weight 170.00 lb Heart Rate 77 /min BP Systolic 141 mmHg BP Diastolic 91 mmHg Height 64.25 inches 5'4.25" BMI (Body Mass Index) 29.0 kg/m2 04/07/2008 Weight 169.00 lb Heart Rate 78 /min BP Systolic 118 mmHg BP Diastolic 79 mmHg Height 64.25 inches 5'4.25" BMI (Body Mass Index) 28.8 kg/m2 11/27/2007 Height 64.25 inches 5'4.25" 11/27/2007 Weight 166.00 lb Heart Rate 87 /min BP Systolic 124 mmHg BP Diastolic 89 mmHg Height 64.25 inches 5'4.25" BMI (Body Mass Index) 28.3 kg/m2 09/12/2007 Weight 164.00 lb Heart Rate 89 /min BP Systolic 138 mmHg BP Diastolic 82 mmHg Height 64.25 inches 5'4.25" BMI (Body Mass Index) 27.9 kg/m2 Results Test Date Test Result H/L Range Note Laboratory test finding 07/12/2017 TSH 2.09 uIU/mL 0.35-4.94 Lipid Treatment 07/12/2017 Cholesterol 224 mg/dL High 50-199 Triglycerides 131 mg/dL 30-200 HDL 64 mg/dL 35-85 1 Chol/ HDL Ratio 3.5 ratio Low 3.7-5.6 VLDL 26 mg/dL 2-29 LDL (Calc) 134 mg/dL High 20-99 2 Alt 20 U/L 3-42 Ast 16 U/L 8-42 Comprehensive Met Panel-[facility] 05/16/2017 Sodium 142 mmol/L 135-146 3 Potassium 4.4 mmol/L 3.5-5.2 Chloride# 101 mmol/L 97-110 4 Carbon Dioxide 30 mmol/L 24-34 Glucose 78 mg/dL 70-105 Creatinine 0.7 mg/dL 0.5-1.4 Calcium 10.6 mg/dL High 8.5-10.2 Total Protein 7.4 g/dL 6.0-8.0 Albumin 5.0 g/dL High 3.6-4.9 Globulin 2.4 g/dL 2.0-3.5 A/G Ratio 2.1 Ratio 1.0-2.2 Total Bilirubin 1.1 mg/dL 0.1-1.3 Alkaline Phosphatase 76 U/L 24-140 Alt 31 U/L 3-42 Ast 18 U/L 8-42 Nadia Egfr >60 >60 5 Non Nadia Egfr >60 >60 6 Anion Gap 11 mmol/L 7-16 7 BUN 12 mg/dL 6-26 CBC With Auto Diff 05/16/2017 WBC 6.9 K/uL 4.1-11.0 RBC 4.76 M/uL 4.00-5.40 Hemoglobin 14.2 gm/dL 12.0-16.0 Hematocrit 42.6 % 36.0-47.0 MCV 89.4 fL 80.0-97.0 MCH 29.8 pg 27.0-32.0 MCHC 33.4 g/dL 32.0-36.0 RDW 14.1 % 11.5-14.5 PLT Count 292 K/ul 140-400 MPV 8.6 FL 7.1-10.7 Neutrophil 68.6 % 35.0-75.0 Lymphocyte 20.1 % 16.0-52.0 Monocyte 6.7 % 2.0-10.0 Eosinophil 3.7 % 0.0-5.0 Basophil 0.9 % 0.0-4.0 Abs Neutrophils 4.8 K/uL 2.1-8.0 Abs Lymphocytes 1.4 K/uL 0.8-5.5 Abs Monocytes 0.5 K/uL 0.1-1.0 Abs Eosinophils 0.3 K/uL 0.0-0.5 Abs Basophils 0.1 K/uL 0.0-0.3 Laboratory test 05/16/2017 Surepath Pap SEE NOTE 8 finding Laboratory test 05/16/2017 Hepatitis C Virus NON REACTIVE Non Reactive 9 finding Antibody S/[facility] Laboratory test 05/16/2017 Vit D25oh 41 ng/mL 31-100 finding Lipid 05/16/2017 Cholesterol 273 mg/dL High 50-199 Triglycerides 313 mg/dL High 30-200 HDL 59 mg/dL 35-85 10 Chol/ HDL Ratio 4.7 ratio 3.7-5.6 VLDL 63 mg/dL High 2-29 LDL (Calc) 152 mg/dL High 20-99 11 Stool Panel 04/12/2017 Enteric Pathogens By PCR SEE NOTE 12 Giard/Cryptosp Exam SEE NOTE 13 Lactoferrin,Fecal NEGATIVE (Neg) 14 C Diff Toxin B/PCR-RL 04/12/2017 Specimen Description STOOL Comment SPECIMEN UNACCEP <SEE NOTE> 15 CBC With Auto Diff 04/11/2017 WBC 5.6 K/uL 4.1-11.0 RBC 4.58 M/uL 4.00-5.40 Hemoglobin 13.4 gm/dL 12.0-16.0 Hematocrit 41.3 % 36.0-47.0 MCV 90.1 fL 80.0-97.0 MCH 29.3 pg 27.0-32.0 MCHC 32.5 g/dL 32.0-36.0 RDW 14.8 % High 11.5-14.5 PLT Count 298 K/ul 140-400 Neutrophil 67.2 % 35.0-75.0 Lymphocyte 18.4 % 16.0-52.0 Monocyte 7.6 % 2.0-10.0 Eosinophil 5.8 % High 0.0-5.0 Basophil 1.0 % 0.0-4.0 Abs Neutrophils 3.8 K/uL 2.1-8.0 Abs Lymphocytes 1.0 K/uL 0.8-5.5 Abs Monocytes 0.4 K/uL 0.1-1.0 Abs Eosinophils 0.3 K/uL 0.0-0.5 Abs Basophils 0.1 K/uL 0.0-0.3 Comprehensive Met Panel-[facility] 04/11/2017 Sodium 141 mmol/L 135-146 16 Potassium 5.1 mmol/L 3.5-5.2 Chloride# 105 mmol/L 97-110 17 Carbon Dioxide 22 mmol/L Low 24-34 Glucose 117 mg/dL High 70-105 BUN 13 mg/dL 6-26 Creatinine 0.7 mg/dL 0.5-1.4 Calcium 10.0 mg/dL 8.5-10.2 Total Protein 6.8 g/dL 6.0-8.0 Albumin 4.6 g/dL 3.6-4.9 Globulin 2.2 g/dL 2.0-3.5 A/G Ratio 2.1 Ratio 1.0-2.2 Total Bilirubin 0.8 mg/dL 0.1-1.3 Alkaline Phosphatase 67 U/L 24-140 Alt 25 U/L 3-42 Ast 19 U/L 8-42 Nadia Egfr >60 >60 18 Non Nadia Egfr >60 >60 19 Anion Gap 14 mmol/L 7-16 20 Laboratory test finding 11/24/2016 TSH 1.68 uIU/mL 0.35-4.94 Lipid 11/24/2016 Cholesterol 251 mg/dL High 50-199 Triglycerides 171 mg/dL 30-200 HDL 60 mg/dL 35-85 21 Chol/ HDL Ratio 4.2 ratio 3.7-5.6 VLDL 34 mg/dL High 2-29 LDL (Calc) 157 mg/dL High 20-99 22 Comprehensive Metabolic (CMP) 11/24/2016 Sodium 141 mmol/L 135-146 23 Potassium 5.4 No visible h <SEE NOTE> mmol/L High 3.5-5.2 24 Chloride# 104 mmol/L 97-110 25 Carbon Dioxide 29 mmol/L 24-34 Glucose 95 mg/dL 70-105 BUN 16 mg/dL 6-26 Creatinine 0.7 mg/dL 0.5-1.4 Calcium 10.2 mg/dL 8.5-10.2 Total Protein 6.9 g/dL 6.0-8.0 Albumin 4.7 g/dL 3.6-4.9 Globulin 2.2 g/dL 2.0-3.5 A/G Ratio 2.1 Ratio 1.0-2.2 Total Bilirubin 0.9 mg/dL 0.1-1.3 Alkaline Phosphatase 73 U/L 24-140 Alt 25 U/L 3-42 Ast 16 U/L 8-42 Nadia Egfr >60 >60 26 Non Nadia Egfr >60 >60 27 Anion Gap 13 mmol/L 7-16 28 CBC With Auto Diff 11/24/2016 WBC 5.6 K/uL 4.1-11.0 RBC 4.69 M/uL 4.00-5.40 Hemoglobin 13.7 gm/dL 12.0-16.0 Hematocrit 41.5 % 36.0-47.0 MCV 88.4 fL 80.0-97.0 MCH 29.1 pg 27.0-32.0 MCHC 32.9 g/dL 32.0-36.0 RDW 14.2 % 11.5-14.5 PLT Count 283 K/ul 140-400 Neutrophil 65.1 % 35.0-75.0 Lymphocyte 18.0 % 16.0-52.0 Monocyte 8.7 % 2.0-10.0 Eosinophil 7.3 % High 0.0-5.0 Basophil 0.9 % 0.0-4.0 Abs Neutrophils 3.6 K/uL 2.1-8.0 Abs Lymphocytes 1.0 K/uL 0.8-5.5 Abs Monocytes 0.5 K/uL 0.1-1.0 Abs Eosinophils 0.4 K/uL 0.0-0.5 Abs Basophils 0.1 K/uL 0.0-0.3 Laboratory test finding 05/11/2016 Vit D,25 Hydroxy 43 ng/mL 31-100 Lipid 05/11/2016 Cholesterol 244 mg/dL High 50-199 Triglycerides 170 mg/dL 30-200 HDL 56 mg/dL 35-85 29 Chol/ HDL Ratio 4.4 ratio 3.7-5.6 VLDL 34 mg/dL High 2-29 LDL (Calc) 154 mg/dL High 20-99 30 Comprehensive Metabolic (CMP) 03/10/2016 Sodium 139 mmol/L 134-142 Potassium 4.4 mmol/L 3.5-5.2 Chloride 103 mmol/L 97-109 Carbon Dioxide 30 mmol/L 24-34 Glucose 90 mg/dL 70-105 BUN 18 mg/dL 6-26 Creatinine 0.7 mg/dL 0.5-1.4 Calcium 10.0 mg/dL 8.5-10.2 Total Protein 6.9 g/dL 6.0-8.0 Albumin 4.6 g/dL 3.6-4.9 Globulin 2.3 g/dL 2.0-3.5 A/G Ratio 2.0 Ratio 1.0-2.2 Total Bilirubin 0.8 mg/dL 0.1-1.3 Alkaline Phosphatase 65 U/L 24-140 Alt 18 U/L 3-42 Ast 14 U/L 8-42 Anion Gap 10 mmol/L 6-14 Nadia Egfr >60 >60 31 Non Nadia Egfr >60 >60 32 Laboratory test finding 03/10/2016 Lipase 29 U/L 11-82 CBC With Auto Diff 03/10/2016 WBC 7.3 K/uL 4.1-11.0 RBC 4.72 M/uL 4.00-5.40 Hemoglobin 14.0 gm/dL 12.0-16.0 Hematocrit 41.4 % 36.0-47.0 MCV 87.8 fL 80.0-97.0 MCH 29.6 pg 27.0-32.0 MCHC 33.7 g/dL 32.0-36.0 RDW 14.4 % 11.5-14.5 PLT Count 288 K/ul 140-400 Neutrophil 72.2 % 35.0-75.0 Lymphocyte 15.1 % Low 16.0-52.0 Monocyte 8.2 % 2.0-10.0 Eosinophil 3.8 % 0.0-5.0 Basophil 0.7 % 0.0-4.0 Abs Neutrophils 5.2 K/uL 2.1-8.0 Abs Lymphocytes 1.1 K/uL 0.8-5.5 Abs Monocytes 0.6 K/uL 0.1-1.0 Abs Eosinophils 0.3 K/uL 0.0-0.5 Abs Basophils 0.1 K/uL 0.0-0.3 Laboratory test finding 01/07/2016 Fer For Fungus SEE NOTE 33 Laboratory test finding 10/14/2015 TSH 1.54 uIU/mL 0.35-4.94 34 CBC With Auto Diff 10/14/2015 WBC 5.9 K/uL 4.1-11.0 34 RBC 4.69 M/uL 4.00-5.40 34 Hemoglobin 13.6 gm/dL 12.0-16.0 34 Hematocrit 42.4 % 36.0-47.0 34 MCV 90.4 fL 80.0-97.0 34 MCH 29.1 pg 27.0-32.0 34 MCHC 32.1 g/dL 32.0-36.0 34 RDW 14.3 % 11.5-14.5 34 PLT Count 271 K/ul 140-400 34 Neutrophil 66.2 % 35.0-75.0 34 Lymphocyte 16.1 % 16.0-52.0 34 Monocyte 8.8 % 2.0-10.0 34 Eosinophil 8.0 % High 0.0-5.0 34 Basophil 0.9 % 0.0-4.0 34 Abs Neutrophils 3.9 K/uL 2.1-8.0 34 Abs Lymphocytes 0.9 K/uL 0.8-5.5 34 Abmon 0.5 K/uL 0.1-1.0 34 Abs Eosinophils 0.5 K/uL 0.0-0.5 34 Abs Basophils 0.1 K/uL 0.0-0.3 34 Comprehensive Metabolic (CMP) 10/14/2015 Sodium 137 mmol/L 134-142 34 Potassium 5.5 No visible h <SEE NOTE> High 3.5-5.2 34, 35 mmol/L Chloride 104 mmol/L 97-109 34 Carbon Dioxide 28 mmol/L 24-34 34 Glucose 85 mg/dL 70-105 34 BUN 22 mg/dL 6-26 34 Creatinine 0.7 mg/dL 0.5-1.4 34 Calcium 9.8 mg/dL 8.5-10.2 34 Total Protein 6.6 g/dL 6.0-8.0 34 Albumin 4.4 g/dL 3.6-4.9 34 Globulin 2.2 g/dL 2.0-3.5 34 A/G Ratio 2.0 Ratio 1.0-2.2 34 Total Bilirubin 1.1 mg/dL 0.1-1.3 34 Alkaline Phosphatase 53 U/L 24-140 34 Alt 37 U/L 3-42 34 Ast 23 U/L 8-42 34 Anion Gap 11 mmol/L 6-14 34 Nadia Egfr >60 >60 34, 36 Non Nadia Egfr >60 >60 34, 37 Laboratory test finding 07/11/2012 TSH 1.75 uIU/mL 0.34-5.60 38 Lipid 07/11/2012 Cholesterol 201 mg/dL High 50-199 38 Triglycerides 123 mg/dL 30-200 38 HDL 59 mg/dL 35-85 38, 39 Chol/ HDL Ratio 3.4 ratio Low 3.7-5.6 38 VLDL 25 mg/dL 2-29 38 LDL (Calc) 117 mg/dL 20-129 38, 40 Non HDL Cholesterol 142 mg/dL High 20-129 38 Comprehensive Metabolic (CMP) 07/11/2012 Sodium 140 mmol/L 134-142 38 Potassium 4.6 mmol/L 3.5-5.2 38 Chloride 104 mmol/L 97-109 38 Carbon Dioxide 26 mmol/L 24-34 38 Glucose 92 mg/dL 70-105 38 BUN 16 mg/dL 6-26 38 Creatinine 0.7 mg/dL 0.5-1.4 38 Calcium 9.6 mg/dL 8.5-10.2 38 Total Protein 6.5 g/dL 6.0-8.0 38 Albumin 4.6 g/dL 3.6-4.9 38 Globulin 1.9 g/dL Low 2.0-3.5 38 A/G Ratio 2.4 Ratio High 1.0-2.2 38 Total Bilirubin 1.2 mg/dL 0.1-1.3 38 Alkaline Phosphatase 53 U/L 24-140 38 Alt 22 U/L 3-42 38 Ast 18 U/L 8-42 38 Anion Gap 15 mmol/L High 6-14 38 Nadia Egfr >60 >60 38, 41 Non Nadia Egfr >60 >60 38, 42 Lipid 12/27/2011 Cholesterol 237 mg/dL High 50-199 38 Triglycerides 228 mg/dL High 30-200 38 HDL 58 mg/dL 35-85 38, 43 Chol/ HDL Ratio 4.1 ratio 3.7-5.6 38 VLDL 46 mg/dL High 2-29 38 LDL (Calc) 133 mg/dL High 20-129 38, 44 Comprehensive Metabolic (CMP) 12/27/2011 Sodium 140 mmol/L 134-142 38 Potassium 5.2 mmol/L 3.5-5.2 38 Chloride 101 mmol/L 97-109 38 Carbon Dioxide 28 mmol/L 24-34 38 Glucose 102 mg/dL 70-105 38 BUN 16 mg/dL 6-26 38 Creatinine 0.7 mg/dL 0.5-1.4 38 Calcium 10.5 mg/dL High 8.5-10.2 38 Total Protein 7.4 g/dL 6.0-8.0 38 Albumin 4.9 g/dL 3.6-4.9 38 Globulin 2.5 g/dL 2.0-3.5 38 A/G Ratio 2.0 Ratio 1.0-2.2 38 Total Bilirubin 1.0 mg/dL 0.1-1.3 38 Alkaline Phosphatase 67 U/L 24-140 38 Alt 25 U/L 3-42 38 Ast 17 U/L 8-42 38 Anion Gap 16 mmol/L High 6-14 38 Nadia Egfr >60 >60 38, 45 Non Nadia Egfr >60 >60 38, 46 Laboratory test finding 12/27/2011 TSH 1.97 uIU/mL 0.34-5.60 38 Vitamin B12 794 pg/mL 180-914 38 Laboratory test finding 12/27/2011 [facility] Pap SEE NOTE 38, 47 CBC With Auto Diff 07/06/2011 WBC 6.7 K/uL 4.1-11.0 48 RBC 4.86 M/uL 4.00-5.40 48 Hemoglobin 15.1 gm/dL 12.0-16.0 48 Hematocrit 43.5 % 36.0-47.0 48 MCV 89.5 fL 80.0-97.0 48 MCH 31.2 pg 27.0-32.0 48 MCHC 34.8 g/dL 32.0-36.0 48 RDW 14.2 % 11.5-14.5 48 PLT Count 319 K/ul 140-400 48 Neutrophil 63.3 % 35.0-75.0 48 Lymphocyte 22.5 % 16.0-52.0 48 Monocyte 7.3 % 2.0-10.0 48 Eosinophil 6.5 % High 0.0-5.0 48 Basophil 0.4 % 0.0-4.0 48 Abs Neutrophils 4.3 K/uL 2.1-8.0 48 Abs Lymphocytes 1.5 K/uL 0.8-5.5 48 Abs Monocytes 0.5 K/uL 0.1-1.0 48 Abs Eosinophils 0.4 K/uL 0.0-0.5 48 Abs Basophils 0.0 K/uL 0.0-0.3 48 Comprehensive Metabolic (CMP) 05/24/2011 Sodium 140 mmol/L 135-144 48 Potassium 4.4 mmol/L 3.6-5.2 48 Chloride 106 mmol/L 97-110 48 Carbon Dioxide 26 mmol/L 23-32 48 Glucose 97 mg/dL 70-105 48 BUN 19 mg/dL 6-22 48 Creatinine 0.8 mg/dL 0.5-1.3 48 Calcium 10.1 mg/dL 8.6-10.2 48 BUN/CR 24 ratio High 12-20 48 Total Protein 6.8 g/dL 5.8-7.8 48 Albumin 4.2 g/dL 3.5-4.8 48 Globulin 2.6 g/dL 2.0-3.5 48 A/G Ratio 1.6 Ratio 1.0-2.2 48 Total Bilirubin 1.0 mg/dL 0.3-1.2 48 Alkaline Phosphatase 65 U/L 24-140 48 Alt 25 U/L 5-45 48 Ast 23 U/L 12-40 48 Anion Gap 12 mmol/L 8-16 48 Non Nadia Egfr >60 >60 48, 49 Nadia Egfr >60 >60 48, 50 Lipid 05/24/2011 Cholesterol 203 mg/dL High 50-199 48 Triglycerides 123 mg/dL 10-150 48 HDL 54 mg/dL 35-85 48, 51 Chol/ HDL Ratio 3.8 ratio 3.7-5.6 48 VLDL 25 mg/dL 2-29 48 LDL (Calc) 124 mg/dL 20-129 48, 52 Laboratory test finding 03/08/2011 Rubella Igg AB 18.6 IU/mL 53, 54 Measles Igg AB 2.08 ELFA 53, 55 Mumps Igg (Immune) 1.85 ELFA 53, 56 Laboratory test finding 01/12/2011 Calcium 9.7 mg/dL 8.6-10.2 53 Lipid Treatment 01/12/2011 Cholesterol 240 mg/dL High 50-199 53 Triglycerides 164 mg/dL High 10-150 53 HDL 53 mg/dL 35-85 53, 57 Chol/ HDL Ratio 4.5 ratio 3.7-5.6 53 VLDL 33 mg/dL High 2-29 53 LDL (Calc) 154 mg/dL High 20-129 53, 58 Alt 23 U/L 5-45 53 Ast 17 U/L 12-40 53 Laboratory test finding 12/22/2010 [facility] Pap SEE NOTE 59, 60 Laboratory test finding 11/17/2010 TSH 2.09 uIU/mL 0.34-5.60 61 Lipid Treatment 11/17/2010 Cholesterol 242 mg/dL High 50-199 61 Triglycerides 151 mg/dL High 10-150 61 HDL 53 mg/dL 35-85 61, 62 Chol/ HDL Ratio 4.6 ratio 3.7-5.6 61 VLDL 30 mg/dL High 2-29 61 LDL (Calc) 159 mg/dL High 20-129 61, 63 Alt 18 U/L 5-45 61 Ast 19 U/L 12-40 61 Basic (BMP) 11/17/2010 Sodium 139 mmol/L 135-144 61 Potassium 5.0 mmol/L 3.6-5.2 61 Chloride 103 mmol/L 97-110 61 Carbon Dioxide 27 mmol/L 23-32 61 Glucose 98 mg/dL 70-105 61 BUN 16 mg/dL 6-22 61 Creatinine 0.7 mg/dL 0.5-1.3 61 Calcium 9.8 mg/dL 8.6-10.2 61 Anion Gap 14 mmol/L 8-16 61 BUN/CR 23 ratio High 12-20 61 Non Nadia Egfr >60 >60 61, 64 Nadia Egfr >60 >60 61, 65 Laboratory test finding 08/15/2010 H Pylori Stool Ag - (SEE NOTE) 66, 67 LA CBC With Auto Diff 08/09/2010 WBC 6.2 K/ul 4.0-10.9 68 RBC 4.70 M/ul 4.20-5.40 68 Hemoglobin 14.6 GM/dl 12.5-16.0 68 Hematocrit 42.3 % 36.0-47.0 68 MCV 89.9 FL 80.0-97.0 68 MCH 31.1 pg High 27.0-31.0 68 MCHC 34.6 g/dL 32.0-36.0 68 RDW 14.0 % 11.5-14.5 68 Platelet Count 311 K/ul 140-440 68 Neutrophils 65.2 % 50-70 68 Lymphocytes 22.5 % 20-44 68 Monocytes 9.3 % High 2-9 68 Eosinophil 2.4 % 0-4 68 Basophil 0.6 % 0-2 68 Absolute Neutrophils 4.1 K/ul 2.05-7.63 68 Absolute Lymphocytes 1.4 K/ul 0.8-4.8 68 Absolute Monocytes 0.6 K/ul 0.1-1.0 68 Absolute Eosinophils 0.1 K/ul 0.1-0.5 68 Absolute Basophils 0.0 K/ul 0.0-0.3 68 Hematology Comment (Comm2) N/A 68 Iron Panel 08/09/2010 Iron, Total 97 g/dL 28-170 68 Transferrin 287 mg/dL 192-382 68 Tibc (Calc) 402 g/dL 261-478 68 % Saturation (Calc) 24.2 % 13.0-45.0 68 Laboratory test finding 08/09/2010 Lipase 25 U/L 22-51 68 Hepatic Liver Panel 08/09/2010 Total Protein 6.9 g/dL 5.8-7.8 68 Albumin 4.5 g/dL 3.5-4.8 68 Total Bilirubin 1.0 mg/dL 0.3-1.2 68 Direct Bilirubin 0.2 mg/dL 0.0-0.5 68 Alkaline Phosphatase 69 U/L 24-140 68 Alt 29 U/L 5-45 68 Ast 22 U/L 12-40 68 Basic (BMP) 08/09/2010 Sodium 140 mmol/L 135-144 68 Potassium 5.4 mmol/L High 3.6-5.2 68, 69 Chloride 104 mmol/L 97-110 68 Carbon Dioxide 29 mmol/L 23-32 68 Glucose 101 mg/dL 70-105 68 BUN 12 mg/dL 6-22 68 Creatinine 0.6 mg/dL 0.5-1.3 68 BUN/CR 20 Ratio 68 Anion Gap 12 mmol/L 8-16 68 Calcium 10.5 mg/dL High 8.6-10.2 68 GFR Calculation > 60 mL/min 60-175 68, 70 GFR For > 60 mL/min 60-175 68, 71 Lipid [place] Panel 12/09/2009 Ast 20 U/L 12-40 72 Alt 20 U/L 5-45 72 Cholesterol 211 mg/dL High 50-199 72, 73 Triglycerides 117 mg/dL 10-150 72 HDL 62 mg/dL 35-85 72, 74 LDL (Calc) 126 mg/dL 20-129 72, 75 Chol/HDL Ratio 3.4 Ratio Low 3.7-5.6 72, 76 VLDL 23 mg/dL 2-29 72 Laboratory test finding 12/01/2009 [facility] Pap - [place] (SEE NOTE) 77, 78 Laboratory test finding 09/07/2009 Esr 8 MM/HR 0-20 79 Rozina Screen Neg 79 CBC With Auto Diff 09/07/2009 WBC 6.0 K/ul 4.0-10.9 79 RBC 4.77 M/ul 4.20-5.40 79 Hemoglobin 14.4 GM/dl 12.5-16.0 79 Hematocrit 42.9 % 36.0-47.0 79 MCV 90.1 FL 80.0-97.0 79 MCH 30.2 pg 27.0-31.0 79 MCHC 33.5 g/dL 32.0-36.0 79 RDW 13.6 % 11.5-14.5 79 Platelet Count 310 K/ul 140-440 79 Neutrophils 67.7 % 50-70 79 Lymphocytes 22.1 % 20-44 79 Monocytes 7.5 % 2-9 79 Eosinophil 2.0 % 0-4 79 Basophil 0.7 % 0-2 79 Absolute Neutrophils 4.1 K/ul 2.05-7.63 79 Absolute Lymphocytes 1.3 K/ul 0.8-4.8 79 Absolute Monocytes 0.5 K/ul 0.1-1.0 79 Absolute Eosinophils 0.1 K/ul 0.1-0.5 79 Absolute Basophils 0.0 K/ul 0.0-0.3 79 Hematology Comment (Comm2) N/A 79 CBC With Auto Diff 07/29/2009 WBC 6.0 K/ul 4.0-10.9 80 RBC 4.80 M/ul 4.20-5.40 80 Hemoglobin 14.6 GM/dl 12.5-16.0 80 Hematocrit 43.1 % 36.0-47.0 80 MCV 89.8 FL 80.0-97.0 80 MCH 30.3 pg 27.0-31.0 80 MCHC 33.8 g/dL 32.0-36.0 80 RDW 13.5 % 11.5-14.5 80 Platelet Count 293 K/ul 140-440 80 Neutrophils 76.2 % High 50-70 80 Lymphocytes 15.8 % Low 20-44 80 Monocytes 6.3 % 2-9 80 Eosinophil 1.4 % 0-4 80 Basophil 0.3 % 0-2 80 Absolute Neutrophils 4.6 K/ul 2.05-7.63 80 Absolute Lymphocytes 0.9 K/ul 0.8-4.8 80 Absolute Monocytes 0.4 K/ul 0.1-1.0 80 Absolute Eosinophils 0.1 K/ul 0.1-0.5 80 Absolute Basophils 0.0 K/ul 0.0-0.3 80 Hematology Comment (Comm2) N/A 80 Lipid [place] Panel 07/29/2009 Ast 21 U/L 12-40 80 Alt 23 U/L 5-45 80 Cholesterol 269 mg/dL High 50-199 80, 81 Triglycerides 127 mg/dL 10-150 80 HDL 62 mg/dL 35-85 80, 82 LDL (Calc) 182 mg/dL High 20-129 80, 83 Chol/HDL Ratio 4.3 Ratio 3.7-5.6 80, 84 VLDL 25 mg/dL 2-29 80 Basic (BMP) 07/29/2009 Sodium 141 mmol/L 135-144 80 Potassium 5.4 mmol/L High 3.6-5.2 80, 85 Chloride 105 mmol/L 97-110 80 Carbon Dioxide 28 mmol/L 23-32 80 Glucose 98 mg/dL 70-105 80 BUN 12 mg/dL 6-22 80 Creatinine 0.7 mg/dL 0.5-1.3 80 BUN/CR 17 Ratio 80 Anion Gap 13 mmol/L 8-16 80 Calcium 10.2 mg/dL 8.6-10.2 80 GFR Calculation > 60 mL/min 60-175 80, 86 GFR For > 60 mL/min 60-175 80, 87 Laboratory test finding 07/29/2009 TSH 2.70 uIU/ml 0.34-5.60 80 Laboratory test finding 11/30/2008 [facility] Pap - [place] (SEE NOTE) 88 Lipid Panel 11/30/2008 Cholesterol 206 mg/dL High 50-199 89 Triglycerides 167 mg/dL High 10-150 89 HDL 53 mg/dL 35-85 89, 90 Chol/HDL Ratio 3.9 Ratio 3.7-5.6 89, 91 VLDL 33 mg/dL High 2-29 89 LDL (Calc) 120 mg/dL 20-129 89, 92 CMP 11/30/2008 Sodium 139 mmol/L 135-144 89 Potassium 4.2 mmol/L 3.6-5.2 89 Chloride 102 mmol/L 97-110 89 Carbon Dioxide 27 mmol/L 23-33 89 Glucose 96 mg/dL 70-105 89 BUN 13 mg/dL 6-22 89 Creatinine 0.6 mg/dL 0.5-1.3 89 BUN/CR 22 Ratio High 12.0-20.0 89 Calcium 9.9 mg/dL 8.6-10.2 89 Total Protein 6.6 g/dL 5.8-7.8 89 Albumin 4.3 g/dL 3.5-4.8 89 Globulin 2.3 g/dL 2.0-3.5 89 A/G Ratio 1.9 Ratio 1.0-2.2 89 Total Bilirubin 1.1 mg/dL 0.3-1.2 89 Alkaline Phosphatase 63 U/L 24-140 89 Alt 23 U/L 4-45 89 Ast 20 U/L 12-40 89 Anion Gap 14 mmol/L 8-16 89 GFR Calculation > 60 mL/min 60-175 89, 93 GFR For > 60 mL/min 60-175 89, 94 CBC With Auto Diff 10/19/2008 WBC 6.3 K/ul 4.0-10.9 95 RBC 4.69 M/ul 4.20-5.40 95 Hemoglobin 14.1 GM/dl 12.5-16.0 95 Hematocrit 41.7 % 36.0-47.0 95 MCV 88.9 FL 80.0-97.0 95 MCH 30.1 pg 27.0-31.0 95 MCHC 33.9 g/dL 32.0-36.0 95 RDW 13.6 % 11.5-14.5 95 Platelet Count 309 K/ul 140-440 95 Neutrophils 69.0 % 50-70 95 Lymphocytes 21.1 % 20-44 95 Monocytes 7.8 % 2-9 95 Eosinophil 1.5 % 0-4 95 Basophil 0.6 % 0-2 95 Absolute Neutrophils 4.4 K/ul 2.05-7.63 95 Absolute Lymphocytes 1.3 K/ul 0.8-4.8 95 Absolute Monocytes 0.5 K/ul 0.1-1.0 95 Absolute Eosinophils 0.1 K/ul 0.1-0.5 95 Absolute Basophils 0.0 K/ul 0.0-0.3 95 Hematology Comment (Comm2) N/A 95 Laboratory test finding 10/19/2008 TSH 1.44 uIU/ml 0.34-5.60 95 Lipid [place] Panel 2008 Ast 22 U/L 12-40 96 Alt 24 U/L 4-45 96 Cholesterol 226 mg/dL High 50-199 96 Triglycerides 106 mg/dL 10-150 96 HDL 55 mg/dL 35-85 96, 97 LDL (Calc) 150 mg/dL High 20-129 96, 98 Chol/HDL Ratio 4.1 Ratio 96, 99 VLDL 21 mg/dL 96 Ebv Evaluation Panel 2008 Ebv Nuclear Ag POSITIVE INDEX (<0.90) 96, 100 -LA Igg - LA Ebv Vca Igm - [place] NEGATIVE INDEX (<0.90) 96 Ebv Early Ag, Igg - [place] NEGATIVE INDEX (<0.90) 96 Ebv Vca Igg - [place] POSITIVE INDEX (<0.90) 96, 101 CBC With Auto Diff 11/13/2007 WBC 6.3 K/ul 4.0-10.9 102 RBC 4.60 M/ul 4.20-5.40 102 Hemoglobin 14.1 GM/dl 12.5-16.0 102 Hematocrit 41.2 % 36.0-47.0 102 MCV 89.5 FL 80.0-97.0 102 MCH 30.6 pg 27.0-31.0 102 MCHC 34.3 g/dL 32.0-36.0 102 RDW 14.0 % 11.5-14.5 102 Platelet Count 309 K/ul 140-440 102 Neutrophils 68.4 % 50-70 102 Lymphocytes 21.4 % 20-44 102 Monocytes 7.7 % 2-9 102 Eosinophil 2.0 % 0-4 102 Basophil 0.5 % 0-2 102 Absolute Neutrophils 4.3 K/ul 2.05-7.63 102 Absolute Lymphocytes 1.3 K/ul 0.8-4.8 102 Absolute Monocytes 0.5 K/ul 0.1-1.0 102 Absolute Eosinophils 0.1 K/ul 0.1-0.5 102 Absolute Basophils 0.0 K/ul Low 0.1-0.3 102 Basic (BMP) 11/13/2007 Sodium 139 mmol/L 135-144 102 Potassium 4.5 mmol/L 3.6-5.2 102 Chloride 106 mmol/L 97-110 102 Carbon Dioxide 27 mmol/L 23-33 102 Glucose 88 mg/dL 70-105 102 BUN 19 mg/dL 6-22 102 Creatinine 0.7 mg/dL 0.5-1.3 102 BUN/CR 27 Ratio High 12.0-20.0 102 Anion Gap 11 mmol/L 8-16 102 Calcium 10.2 mg/dL 8.6-10.2 102 GFR Calculation > 60 mL/min 102, 103 GFR For > 60 mL/min 102, 104 Lipid TX Panel 11/13/2007 Ast 19 U/L 12-40 102 Alt 21 U/L 4-45 102 Cholesterol 235 mg/dL High 50-199 102 Triglycerides 91 mg/dL 10-150 102 HDL 57 mg/dL 35-85 102 LDL (Calc) 160 mg/dL High 20-129 102 Chol/HDL Ratio 4.1 Ratio 102 VLDL 18 mg/dL 102 Laboratory test finding 11/13/2007 TSH 1.11 uIU/ml 0.34-5.60 102 Vitamin D, 25 Hydroxy 44 ng/mL 19-58 102 1 Per NCEP ATP III Guidelines: Results lower than 40 mg/dL are suggestive of increased risk for coronary artery disease. Results > or=to 60 mg/dL are considered a negative risk factor. 2 Per NCEP ATP III Guidelines: Normal Population <130 Patients with medical conditions: CHD/DM Optimal: <100 Borderline high: 130-159 High: 160-189 Very high: >189 3 Updated reference range on new analyzer 4 Updated reference range on new analyzer 5 Concerning GFR Guidelines for Americans: Normal function or mild renal disease, if clinically at risk: >/=60 mL/min Moderately decreased: 30-59 Severely decreased: 15-29 Renal failure: <15 6 Concerning GFR Guidelines: Normal function or mild renal disease, if clinically at risk: >/=60 mL/min Moderately decreased: 30-59 Severely decreased: 15-29 Renal failure: <15 Glomerular Filtration Rate (GFR) is estimated based on the MDRD equation, which assumes a steady state for creatinine as recommended by the National Kidney Disease Education Program in conjunction with the National Institutes of Health and the National Kidney Foundation. Clinical conditions in which it may be necessary to measure GFR by using clearance methods include extremes of age and body size, severe malnutrition or obesity, diseases of skeletal muscle, paraplegia or quadriplegia, vegetarian diet, rapidly changing kidney function, and calculation of the dose of potentially toxic drugs that are excreted by the kidneys. 7 Updated reference range on new analyzer 8 [facility]. [facility] [place] [address] CYTOLOGY REPORT Source of Specimen(s): [facility] Vaginal Pap Smear - One Vial Date of Last Menstrual Period: None Provided Specimen Adequacy SATISFACTORY FOR EVALUATION General Categorization NEGATIVE FOR INTRAEPITHELIAL LESION OR MALIGNANCY Interpretation NEGATIVE FOR INTRAEPITHELIAL LESION OR MALIGNANCY Reported: 05/18/2017 09:50 Electronically Signed Out By Purvi ROJAS(ASCP) lgs ICD9 Code: Z01.419 Unless otherwise specified, testing performed by [facility] [address] [address] 9 S/CO Ratio >/=1.0 is REACTIVE. S/CO <5.0 is Low Reactive. S/CO >/= 5.0 is High Reactive. Effective Mar 16, 2017 all anti-HCV reactive samples are sent for quantitative PCR confirmation. 10 Per NCEP ATP III Guidelines: Results lower than 40 mg/dL are suggestive of increased risk for coronary artery disease. Results > or=to 60 mg/dL are considered a negative risk factor. 11 Per NCEP ATP III Guidelines: Normal Population <130 Patients with medical conditions: CHD/DM Optimal: <100 Borderline high: 130-159 High: 160-189 Very high: >189 12 SPECIMEN DESCRIPTION STOOL SPECIAL REQUESTS NONE RESULT NEGATIVE FOR ENTERIC PATHOGENS BY PCR. NOTE: THIS MOLECULAR ASSAY DETECTS THE FOLLOWING ENTERIC PATHOGENS: CAMPYLOBACTER GROUP (COLI, JEJUNI, XI), SALMONELLA SPECIES, SHIGELLA SPECIES (DYSENTERIAE, BOYDII, SONNEI, FLEXNERI), VIBRIO GROUP (CHOLERAE, PARAHAEMOLYTICUS), YERSINIA ENTEROCOLITICA, SHIGA TOXIN 1, SHIGA TOXIN 2, NOROVIRUS GROUP 1 AND 2, ROTAVIRUS A. REPORT STATUS FINAL 04/13/2017 Unless otherwise specified, testing performed by [email or web address] [address] [place] [address] 13 SPECIMEN DESCRIPTION STOOL SPECIAL REQUESTS NONE RESULT NEGATIVE FOR GIARDIA BY DFA NEGATIVE FOR CRYPTOSPORIDIUM BY DFA STOOL SPECIMEN SCREENED FOR THE PRESENCE OF GIARDIA LAMBLIA AND CRYPTOSPORIDIUM PARVUM ONLY. FOR PATIENTS FROM OR WITH A HISTORY OF TRAVEL TO A DEVELOPING COUNTRY, OR WHO HAVE PERSISTANT SYMPTOMS AND/OR ARE IMMUNOCOMPROMISED, CALL MICROBIOLOGY TO REQUEST THE REFLEX TEST OAP FOR A COMPREHENSIVE MICROSCOPIC EXAMINATION. SPECIMENS ARE SAVED IN FIXATIVE AND HELD FOR 7 DAYS FROM THE REPORT DATE TO ALLOW THESE TESTS TO BE ADDED ON. REPORT STATUS FINAL 04/13/2017 Unless otherwise specified, testing performed by [email or web address] [address] [place] [address] 14 PERFORMED AT [address] [place] [address] Unless otherwise specified, testing performed by [facility] [address] [place] [address] 15 SPECIMEN UNACCEPTABLE: C. DIFFICILE TOXIN TESTING WILL NOT BE PERFORMED ON FORMED OR HARD STOOL SAMPLES. Unless otherwise specified, testing performed by [email or web address] [address] [place] [address] 16 Updated reference range on new analyzer 17 Updated reference range on new analyzer 18 Concerning GFR Guidelines for Americans: Normal function or mild renal disease, if clinically at risk: >/=60 mL/min Moderately decreased: 30-59 Severely decreased: 15-29 Renal failure: <15 19 Concerning GFR Guidelines: Normal function or mild renal disease, if clinically at risk: >/=60 mL/min Moderately decreased: 30-59 Severely decreased: 15-29 Renal failure: <15 Glomerular Filtration Rate (GFR) is estimated based on the MDRD equation, which assumes a steady state for creatinine as recommended by the National Kidney Disease Education Program in conjunction with the National Institutes of Health and the National Kidney Foundation. Clinical conditions in which it may be necessary to measure GFR by using clearance methods include extremes of age and body size, severe malnutrition or obesity, diseases of skeletal muscle, paraplegia or quadriplegia, vegetarian diet, rapidly changing kidney function, and calculation of the dose of potentially toxic drugs that are excreted by the kidneys. 20 Updated reference range on new analyzer 21 Per NCEP ATP III Guidelines: Results lower than 40 mg/dL are suggestive of increased risk for coronary artery disease. Results > or=to 60 mg/dL are considered a negative risk factor. 22 Per NCEP ATP III Guidelines: Normal Population <130 Patients with medical conditions: CHD/DM Optimal: <100 Borderline high: 130-159 High: 160-189 Very high: >189 23 Updated reference range on new analyzer 24 5.4 No visible hemolysis. 25 Updated reference range on new analyzer 26 Concerning GFR Guidelines for Americans: Normal function or mild renal disease, if clinically at risk: >/=60 mL/min Moderately decreased: 30-59 Severely decreased: 15-29 Renal failure: <15 27 Concerning GFR Guidelines: Normal function or mild renal disease, if clinically at risk: >/=60 mL/min Moderately decreased: 30-59 Severely decreased: 15-29 Renal failure: <15 Glomerular Filtration Rate (GFR) is estimated based on the MDRD equation, which assumes a steady state for creatinine as recommended by the National Kidney Disease Education Program in conjunction with the National Institutes of Health and the National Kidney Foundation. Clinical conditions in which it may be necessary to measure GFR by using clearance methods include extremes of age and body size, severe malnutrition or obesity, diseases of skeletal muscle, paraplegia or quadriplegia, vegetarian diet, rapidly changing kidney function, and calculation of the dose of potentially toxic drugs that are excreted by the kidneys. 28 Updated reference range on new analyzer 29 Per NCEP ATP III Guidelines: Results lower than 40 mg/dL are suggestive of increased risk for coronary artery disease. Results > or=to 60 mg/dL are considered a negative risk factor. 30 Per NCEP ATP III Guidelines: Normal Population <130 Patients with medical conditions: CHD/DM Optimal: <100 Borderline high: 130-159 High: 160-189 Very high: >189 31 Concerning GFR Guidelines for Americans: Normal function or mild renal disease, if clinically at risk: >/=60 mL/min Moderately decreased: 30-59 Severely decreased: 15-29 Renal failure: <15 32 Concerning GFR Guidelines: Normal function or mild renal disease, if clinically at risk: >/=60 mL/min Moderately decreased: 30-59 Severely decreased: 15-29 Renal failure: <15 Glomerular Filtration Rate (GFR) is estimated based on the MDRD equation, which assumes a steady state for creatinine as recommended by the National Kidney Disease Education Program in conjunction with the National Institutes of Health and the National Kidney Foundation. Clinical conditions in which it may be necessary to measure GFR by using clearance methods include extremes of age and body size, severe malnutrition or obesity, diseases of skeletal muscle, paraplegia or quadriplegia, vegetarian diet, rapidly changing kidney function, and calculation of the dose of potentially toxic drugs that are excreted by the kidneys. 33 SPECIMEN DESCRIPTION NAIL SPECIAL REQUESTS NONE RESULT NO YEAST NO HYPHAL ELEMENTS REPORT STATUS FINAL 01/08/2016 Unless otherwise specified, testing performed by [facility] [address] [place] [id number] 34 This sample is drawn by: BR 35 5.5 No visible hemolysis. 36 Concerning GFR Guidelines for Americans: Normal function or mild renal disease, if clinically at risk: >/=60 mL/min Moderately decreased: 30-59 Severely decreased: 15-29 Renal failure: <15 37 Concerning GFR Guidelines: Normal function or mild renal disease, if clinically at risk: >/=60 mL/min Moderately decreased: 30-59 Severely decreased: 15-29 Renal failure: <15 Glomerular Filtration Rate (GFR) is estimated based on the MDRD equation, which assumes a steady state for creatinine as recommended by the National Kidney Disease Education Program in conjunction with the National Institutes of Health and the National Kidney Foundation. Clinical conditions in which it may be necessary to measure GFR by using clearance methods include extremes of age and body size, severe malnutrition or obesity, diseases of skeletal muscle, paraplegia or quadriplegia, vegetarian diet, rapidly changing kidney function, and calculation of the dose of potentially toxic drugs that are excreted by the kidneys. 38 This sample is drawn by:ART 39 Per NCEP ATP III Guidelines: Results lower than 40 mg/dL are suggestive of increased risk for coronary artery disease. Results > or=to 60 mg/dL are considered a negative risk factor. 40 Per NCEP ATP III Guidelines: Optimal: <100 Near optimal: 100-129 Borderline high: 130-159 High: 160-189 Very high: >189 41 Concerning GFR Guidelines for Americans: Normal function or mild renal disease, if clinically at risk: >/=60 mL/min Moderately decreased: 30-59 Severely decreased: 15-29 Renal failure: <15 42 Concerning GFR Guidelines: Normal function or mild renal disease, if clinically at risk: >/=60 mL/min Moderately decreased: 30-59 Severely decreased: 15-29 Renal failure: <15 Glomerular Filtration Rate (GFR) is estimated based on the MDRD equation, which assumes a steady state for creatinine as recommended by the National Kidney Disease Education Program in conjunction with the National Institutes of Health and the National Kidney Foundation. Clinical conditions in which it may be necessary to measure GFR by using clearance methods include extremes of age and body size, severe malnutrition or obesity, diseases of skeletal muscle, paraplegia or quadriplegia, vegetarian diet, rapidly changing kidney function, and calculation of the dose of potentially toxic drugs that are excreted by the kidneys. 43 Per NCEP ATP III Guidelines: Results lower than 40 mg/dL are suggestive of increased risk for coronary artery disease. Results > or=to 60 mg/dL are considered a negative risk factor. 44 Per NCEP ATP III Guidelines: Optimal: <100 Near optimal: 100-129 Borderline high: 130-159 High: 160-189 Very high: >189 45 Concerning GFR Guidelines for Americans: Normal function or mild renal disease, if clinically at risk: >/=60 mL/min Moderately decreased: 30-59 Severely decreased: 15-29 Renal failure: <15 46 Concerning GFR Guidelines: Normal function or mild renal disease, if clinically at risk: >/=60 mL/min Moderately decreased: 30-59 Severely decreased: 15-29 Renal failure: <15 Glomerular Filtration Rate (GFR) is estimated based on the MDRD equation, which assumes a steady state for creatinine as recommended by the National Kidney Disease Education Program in conjunction with the National Institutes of Health and the National Kidney Foundation. Clinical conditions in which it may be necessary to measure GFR by using clearance methods include extremes of age and body size, severe malnutrition or obesity, diseases of skeletal muscle, paraplegia or quadriplegia, vegetarian diet, rapidly changing kidney function, and calculation of the dose of potentially toxic drugs that are excreted by the kidneys. 47 [facility] [employer]. [facility] [place] [address] GYNECOLOGIC CYTOLOGY REPORT Accession Number: [id number] Source of Specimen(s): A: SurePath Vaginal / Cervical Pap Smear - One Vial Clinical Diagnosis and History: Date of Last Menstrual Period: 6 yrs Menstrual History: Post-menopausal Other Clinical Conditions: Last Pap Smear: 1 yr normal Specimen Adequacy Satisfactory for evaluation Presence of endocervical/transformation zone component General Categorization Negative for intraepithelial lesion or malignancy Interpretation NEGATIVE FOR INTRAEPITHELIAL LESION OR MALIGNANCY Reported: 12/29/2011 Electronically Signed Out By Ciera ROJAS(ASCP) [facility] dss Unless otherwise specified, testing performed by [facility] [address] [address] 48 FAX COPY TO @[phone]. This sample is drawn by:ART 49 Concerning GFR Guidelines: Normal function or mild renal disease, if clinically at risk: >/=60 mL/min Moderately decreased: 30-59 Severely decreased: 15-29 Renal failure: <15 Glomerular Filtration Rate (GFR) is estimated based on the MDRD equation, which assumes a steady state for creatinine as recommended by the National Kidney Disease Education Program in conjunction with the National Institutes of Health and the National Kidney Foundation. Clinical conditions in which it may be necessary to measure GFR by using clearance methods include extremes of age and body size, severe malnutrition or obesity, diseases of skeletal muscle, paraplegia or quadriplegia, vegetarian diet, rapidly changing kidney function, and calculation of the dose of potentially toxic drugs that are excreted by the kidneys. 50 Concerning GFR Guidelines for Americans: Normal function or mild renal disease, if clinically at risk: >/=60 mL/min Moderately decreased: 30-59 Severely decreased: 15-29 Renal failure: <15 51 Per NCEP ATP III Guidelines: Results lower than 40 mg/dL are suggestive of increased risk for coronary artery disease. Results > or=to 60 mg/dL are considered a negative risk factor. 52 Per NCEP ATP III Guidelines: Optimal: <100 Near optimal: 100-129 Borderline high: 130-159 High: 160-189 Very high: >189 53 FAX COPY TO @[phone]. This sample is drawn by:CT 54 RUBELLA INTERPRETATION: NEGATIVE <10.0 IU/ML BORDERLINE 10.0 - 14.9 IU/ML POSITIVE > OR=15.0 IU/ML VALUES OF 15.0 IU/ML OR GREATER INDICATE IMMUNIZATION OR PAST INFECTION. BORDERLINE RESULTS ARE CONFIRMED. THE MAGNITUDE OF THE REPORTED IGG LEVEL CANNOT BE CORRELATED TO AN ENDPOINT TITER. Unless otherwise specified, testing performed by [email or web address] [address] [place] [id number] 55 MEASLES INTERPRETATION: NEGATIVE <0.50 ELFA UNITS BORDERLINE 0.50 - 0.69 ELFA UNITS LOW LEVEL 0.70 - 1.90 ELFA UNITS MED. LEVEL 1.91 - 2.70 ELFA UNITS HIGH LEVEL >2.70 ELFA UNITS VALUES OF 0.70 OR GREATER INDICATE IMMUNIZATION OR PAST INFECTION. BORDERLINE RESULTS ARE CONFIRMED IN DUPLICATE. Unless otherwise specified, testing performed by [email or web address] [address] [place] [id number] 56 MUMPS INTERPRETATION: NEGATIVE <0.35 ELFA UNITS BORDERLINE 0.35 - 0.49 ELFA UNITS POSITIVE >=0.50 ELFA UNITS VALUES OF 0.50 OR GREATER INDICATE IMMUNIZATION OR PAST INFECTION. BORDERLINE RESULTS ARE CONFIRMED IN DUPLICATE. Unless otherwise specified, testing performed by [email or web address] [address] [place] [id number] 57 Per NCEP ATP III Guidelines: Results lower than 40 mg/dL are suggestive of increased risk for coronary artery disease. Results > or=to 60 mg/dL are considered a negative risk factor. 58 Per NCEP ATP III Guidelines: Optimal: <100 Near optimal: 100-129 Borderline high: 130-159 High: 160-189 Very high: >189 59 This sample is drawn by:MM 60 [employer] [facility] [employer] [facility]. [facility] [place] [address] GYNECOLOGIC CYTOLOGY REPORT Accession Number: [id number] Source of Specimen(s): A: SurePath Vaginal / Cervical Pap Smear - One Vial Clinical Diagnosis and History: Date of Last Menstrual Period: 3 yrs Menstrual History: Post-menopausal Other Clinical Conditions: Last Pap Smear: 1 yr normal Specimen Adequacy Satisfactory for evaluation Scant/no endocervical component General Categorization Negative for intraepithelial lesion or malignancy Interpretation NEGATIVE FOR INTRAEPITHELIAL LESION OR MALIGNANCY Reported: 12/26/2010 Electronically Signed Out By Ciera ROJAS([facility]) [facility] maddie Unless otherwise specified, testing performed by [facility] [address] [place] [address] 61 FAX COPY TO @[phone]. This sample is drawn by:MM 62 Per NCEP ATP III Guidelines: Results lower than 40 mg/dL are suggestive of increased risk for coronary artery disease. Results > or=to 60 mg/dL are considered a negative risk factor. 63 Per NCEP ATP III Guidelines: Optimal: <100 Near optimal: 100-129 Borderline high: 130-159 High: 160-189 Very high: >189 64 Concerning GFR Guidelines: Normal function or mild renal disease, if clinically at risk: >/=60 mL/min Moderately decreased: 30-59 Severely decreased: 15-29 Renal failure: <15 Glomerular Filtration Rate (GFR) is estimated based on the MDRD equation, which assumes a steady state for creatinine as recommended by the National Kidney Disease Education Program in conjunction with the National Institutes of Health and the National Kidney Foundation. Clinical conditions in which it may be necessary to measure GFR by using clearance methods include extremes of age and body size, severe malnutrition or obesity, diseases of skeletal muscle, paraplegia or quadriplegia, vegetarian diet, rapidly changing kidney function, and calculation of the dose of potentially toxic drugs that are excreted by the kidneys. 65 Concerning GFR Guidelines for Americans: Normal function or mild renal disease, if clinically at risk: >/=60 mL/min Moderately decreased: 30-59 Severely decreased: 15-29 Renal failure: <15 66 This sample is drawn by:CT FAX COPY TO @[phone]. 67 SPECIMEN DESCRIPTION STOOL RESULT NEGATIVE FOR H. PYLORI ANTIGEN BY EIA REPORT STATUS FINAL 08/16/2010 Unless otherwise specified, testing performed by [facility] [address] [place] [address] 68 This sample is drawn by:MM FAX COPY TO @[phone]. 69 No visible hemolysis. 70 Concerning GFR GUIDELINES: Normal Function or Mild Renal Disease, if clinically at risk: >/=60mL/min Moderately decreased: 30-59 Severely decreased: 15-29 Renal Failure: <15 Glomerular Filtration Rate (GFR) is estimated based on the MDRD equation, which assumes a steady state for creatinine as recommended by the National Kidney Disease Education Program in conjunction with the National Institutes of Health and the National Kidney Foundation. Clinical conditions in which it may be necessary to measure GFR by using clearance methods include extremes of age and body size, severe malnutrition or obesity, diseases of skeletal muscle, paraplegia or quadriplegia, vegetarian diet, rapidly changing kidney function, and calculation of the dose of potentially toxic drugs that are excreted by the kidneys. 71 Concerning GFR GUIDELINES: Normal Function or Mild Renal Disease, if clinically at risk: >/=60mL/min Moderately decreased: 30-59 Severely decreased: 15-29 Renal Failure: <15 72 This sample is drawn by:CT FAX COPY TO @[phone]. 73 The difference between the most recent result of 269 and the current result of 211 exceeds the absolute delta value of 50 as defined for this test. 74 PER NCEP ATP III GUIDELINES: RESULTS LOWER THAN 40 MG/DL ARE SUGGESTIVE OF INCREASED RISK FOR CORONARY ARTERY DISEASE. RESULTS > OR=TO 60 MG/DL ARE CONSIDERED A NEGATIVE RISK FACTOR. 75 PER NCEP ATP III GUIDELINES: OPTIMAL: <100 NEAR OPTIMAL: 100 - 129 BORDERLINE HIGH: 130 - 159 HIGH: 160 - 189 VERY HIGH: >189 76 INTERPRETATION OF CHOL-HDL RATIO CHD RISK FEMALE MALE VERY HIGH >8.3 >14.3 HIGH 5.6 - 8.3 6.7 - 14.3 AVERAGE 3.7 - 5.6 4.0 - 6.7 BELOW AVERAGE 2.5 - 3.7 2.7 - 4.0 PROTECTED <2.5 <2.7 77 This sample is drawn by:DB .FAX COPY TO @[phone]. 78 [facility]. [address] [place] [address] GYNECOLOGIC CYTOLOGY REPORT Accession Number: [id number] Source of Specimen(s): A: SurePath Vaginal / Cervical Pap Smear - One Vial Clinical Diagnosis and History: Date of Last Menstrual Period: 3 yrs Menstrual History: Post-menopausal Other Clinical Conditions: Last Pap Smear: 11/28 normal REFLEX TO DIGENE HPV ASSAY IF RESULTS OF THIS PAP ARE ASCUS Specimen Adequacy Satisfactory for evaluation Absence of endocervical/transformation zone component General Categorization Negative for intraepithelial lesion or malignancy Interpretation NEGATIVE FOR INTRAEPITHELIAL LESION OR MALIGNANCY Reported: 12/03/2009 Electronically Signed Out By Ciera ROJAS(ASCP) [facility] perkins Unless otherwise specified, testing performed by [facility] [address] [place] [id number] 79 This sample is drawn by:NB.FAX COPY TO @[phone]. AUTO FAX IN 09/07 AD 80 This sample is drawn by:DV please send a copy to Dr Muñiz in [facility] AUTO FAX IN 07/29 Pt has been off her cholesterol meds for over 1 week 81 RESULT CONFIRMED The difference between the most recent result of 206 and the current result of 269 exceeds the absolute delta value of 50 as defined for this test. 82 PER NCEP ATP III GUIDELINES: RESULTS LOWER THAN 40 MG/DL ARE SUGGESTIVE OF INCREASED RISK FOR CORONARY ARTERY DISEASE. RESULTS > OR=TO 60 MG/DL ARE CONSIDERED A NEGATIVE RISK FACTOR. 83 PER NCEP ATP III GUIDELINES: OPTIMAL: <100 NEAR OPTIMAL: 100 - 129 BORDERLINE HIGH: 130 - 159 HIGH: 160 - 189 VERY HIGH: >189 84 INTERPRETATION OF CHOL-HDL RATIO CHD RISK FEMALE MALE VERY HIGH >8.3 >14.3 HIGH 5.6 - 8.3 6.7 - 14.3 AVERAGE 3.7 - 5.6 4.0 - 6.7 BELOW AVERAGE 2.5 - 3.7 2.7 - 4.0 PROTECTED <2.5 <2.7 85 NO VISIBLE HEMOLYSIS The difference between the most recent result of 4.2 and the current result of 5.4 exceeds the absolute delta value of 0.5 as defined for this test. 86 Concerning GFR GUIDELINES: Normal Function or Mild Renal Disease, if clinically at risk: >/=60mL/min Moderately decreased: 30-59 Severely decreased: 15-29 Renal Failure: <15 Glomerular Filtration Rate (GFR) is estimated based on the MDRD equation, which assumes a steady state for creatinine as recommended by the National Kidney Disease Education Program in conjunction with the National Institutes of Health and the National Kidney Foundation. Clinical conditions in which it may be necessary to measure GFR by using clearance methods include extremes of age and body size, severe malnutrition or obesity, diseases of skeletal muscle, paraplegia or quadriplegia, vegetarian diet, rapidly changing kidney function, and calculation of the dose of potentially toxic drugs that are excreted by the kidneys. 87 Concerning GFR GUIDELINES: Normal Function or Mild Renal Disease, if clinically at risk: >/=60mL/min Moderately decreased: 30-59 Severely decreased: 15-29 Renal Failure: <15 88 [employer] [facility] [employer]. [facility] [place] [address] GYNECOLOGIC CYTOLOGY REPORT Accession Number: [id number] Source of Specimen(s): A: SurePath Pap Smear (NOS) - One Vial Clinical Diagnosis and History: Date of Last Menstrual Period: None Provided Other Clinical Conditions: Last Pap Smear: 11/27 neg Specimen Adequacy Satisfactory for evaluation General Categorization Negative for intraepithelial lesion or malignancy Interpretation NEGATIVE FOR INTRAEPITHELIAL LESION OR MALIGNANCY Reported: 12/02/2008 Electronically Signed Out By Bee ROJAS(ASC) [facility] ICD9 Code: V72.3 Unless otherwise specified, testing performed by [facility] [address] [address] 89 FASTING This sample is drawn by:CT 90 PER NCEP ATP III GUIDELINES: RESULTS LOWER THAN 40 MG/DL ARE SUGGESTIVE OF INCREASED RISK FOR CORONARY ARTERY DISEASE. RESULTS > OR=TO 60 MG/DL ARE CONSIDERED A NEGATIVE RISK FACTOR. 91 INTERPRETATION OF CHOL-HDL RATIO CHD RISK FEMALE MALE VERY HIGH >8.3 >14.3 HIGH 5.6 - 8.3 6.7 - 14.3 AVERAGE 3.7 - 5.6 4.0 - 6.7 BELOW AVERAGE 2.5 - 3.7 2.7 - 4.0 PROTECTED <2.5 <2.7 92 PER NCEP ATP III GUIDELINES: OPTIMAL: <100 NEAR OPTIMAL: 100 - 129 BORDERLINE HIGH: 130 - 159 HIGH: 160 - 189 VERY HIGH: >189 93 Concerning GFR GUIDELINES: Normal Function or Mild Renal Disease, if clinically at risk: >/=60mL/min Moderately decreased: 30-59 Severely decreased: 15-29 Renal Failure: <15 Glomerular Filtration Rate (GFR) is estimated based on the MDRD equation, which assumes a steady state for creatinine as recommended by the National Kidney Disease Education Program in conjunction with the National Institutes of Health and the National Kidney Foundation. Clinical conditions in which it may be necessary to measure GFR by using clearance methods include extremes of age and body size, severe malnutrition or obesity, diseases of skeletal muscle, paraplegia or quadriplegia, vegetarian diet, rapidly changing kidney function, and calculation of the dose of potentially toxic drugs that are excreted by the kidneys. 94 Concerning GFR GUIDELINES: Normal Function or Mild Renal Disease, if clinically at risk: >/=60mL/min Moderately decreased: 30-59 Severely decreased: 15-29 Renal Failure: <15 95 This sample is drawn by: cody 96 This sample is drawn by:KYLIE 97 PER NCEP ATP III GUIDELINES: RESULTS LOWER THAN 40 MG/DL ARE SUGGESTIVE OF INCREASED RISK FOR CORONARY ARTERY DISEASE. RESULTS > OR=TO 60 MG/DL ARE CONSIDERED A NEGATIVE RISK FACTOR. 98 PER NCEP ATP III GUIDELINES: OPTIMAL: <100 NEAR OPTIMAL: 100 - 129 BORDERLINE HIGH: 130 - 159 HIGH: 160 - 189 VERY HIGH: >189 99 INTERPRETATION OF CHOL-HDL RATIO CHD RISK FEMALE MALE VERY HIGH >8.3 >14.3 HIGH 5.6 - 8.3 6.7 - 14.3 AVERAGE 3.7 - 5.6 4.0 - 6.7 BELOW AVERAGE 2.5 - 3.7 2.7 - 4.0 PROTECTED <2.5 <2.7 100 May indicate a current or previous infection. Unless otherwise specified, testing performed by [facility] [address] [place] [id number] 101 May indicate a current or previous infection. 102 FASTING 103 Concerning GFR GUIDELINES: Normal Function or Mild Renal Disease, if clinically at risk: >/=60mL/min Moderately decreased: 30-59 Severely decreased: 15-29 Renal Failure: <15 Glomerular Filtration Rate (GFR) is estimated based on the MDRD equation, which assumes a steady state for creatinine as recommended by the National Kidney Disease Education Program in conjunction with the National Institutes of Health and the National Kidney Foundation. Clinical conditions in which it may be necessary to measure GFR by using clearance methods include extremes of age and body size, severe malnutrition or obesity, diseases of skeletal muscle, paraplegia or quadriplegia, vegetarian diet, rapidly changing kidney function, and calculation of the dose of potentially toxic drugs that are excreted by the kidneys. 104 Concerning GFR GUIDELINES: Normal Function or Mild Renal Disease, if clinically at risk: >/=60mL/min Moderately decreased: 30-59 Severely decreased: 15-29 Renal Failure: <15 Procedures Date CPT Code Description Status Comment 11/19/2017 55083 Electrocardiogram Complete Completed 06/11/2017 Mammogram Completed 05/26/2016 Mammogram Completed 02/15/2012 Mammogram Completed 12/27/2011 80625 Electrocardiogram Complete Completed 01/12/2011 Mammogram Completed 01/12/2011 Bone Mineral Density Test Completed 12/22/2010 66173 Electrocardiogram Complete Completed 12/20/2010 Mammogram Completed 12/27/2009 Mammogram Completed 12/01/2009 11157 Electrocardiogram Complete Completed 06/28/2009 28976 Admin Of Inj (Therapeutic Completed Phrophylactic Or Diagnostic Subq Inj 12/21/2008 Bone Mineral Density Test Completed 12/21/2008 Mammogram Completed 11/30/2008 81063 Electrocardiogram Complete Completed 11/27/2007 35809 Electrocardiogram Complete Completed 07/23/2007 Colonoscopy Completed normal cristobal 10 yrs Encounters Type Date Location Provider CPT E/M Dx Office Visit 06/07/2017 8:00a Verenice Espino RN [place] [facility] [address] H81.13 Office Visit 05/16/2017 10:00a [place] [address] Z01.419 Z11.59 F33.0 Z12.31 Z12.11 E78.2 E55.9 Office Visit 05/03/2017 10:20a Verenice Espino, RN [place] [facility] [address]16[address] S22.32xD Office Visit 04/11/2017 11:40[place] [address] R19.7 R11.0 Office Visit 11/24/2016 8:20a Verenice Espino [place] [facility] 65022 J30.9 F33.0 E03.9 E78.2 Office Visit 09/27/2016 1:40p Verenice Espino, DON[place] [facility] 22347 H61.23 Z23 R06.02 J30.9 F33.0 Office Visit 08/11/2016 8:40a Verenice Espino RN [place] [facility] 07446 M25.562 Office Visit 05/19/2016 2:40p Verenice Espino, DONNA [place] [facility] 18437 Z00.00 E03.9 N64.4 Z12.31 K21.9 Office Visit 03/10/2016 1:00p Verenice Espino RN [place] [facility] 58191 K21.9 K58.0 J30.9 R10.11 Office Visit 01/07/2016 11:40a Verenice Espino RN [place] [facility] 63775 F33.0 B35.1 Office Visit 11/26/2015 8:40a Verenice Espino RN [facility] 42977 F41.1 Office Visit 10/27/2015 2:40p Verenice Espino RN [facility] 39336 F41.1 E03.9 K21.9 Office Visit 10/14/2015 10:00a Verenice Espino RN [facility] 16583 R63.5 E03.9 E78.0 K21.9 M25.561 Office Visit 01/03/2013 9:40a Verenice Espino RN [facility] 22548 477.9 461.1 Office Visit 08/14/2012 2:00p Verenice Espino, DONNA [facility] 14898 569.49 625.6 Office Visit 07/10/2012 2:40p Verenice Espino RN [place] [facility] 14259 569.49 625.6 272.0 244.9 Office Visit 05/16/2012 9:40a Verenice Espino RN [facility] 45765 461.0 Office Visit 02/27/2012 2:20p Verenice Espino RN [place] [facility] 10764 477.9 536.9 Office Visit 02/07/2012 1:00p Verenice Espino RN [place] [facility] 03409 477.9 536.9 Office Visit 12/27/2011 9:00a Verenice Espino, RN [place] [facility] 66508 V72.31 244.9 401.1 272.0 477.9 780.79 Office Visit 09/12/2011 9:20a Verenice Espino RN [facility] 87233 724.2 Office Visit 07/12/2011 10:20a Verenice Espino RN [facility] 84435 724.2 Office Visit 07/06/2011 10:40a Verenice Espino RN [facility] 12831 782.1 465.9 Office Visit 06/14/2011 10:40a Verenice Espino RN [facility] 82311 461.0 Office Visit 05/04/2011 1:40p Verenice Espino RN [facility] 18843 789.06 272.0 244.9 401.1 Office Visit 12/22/2010 1:00p Verenice Espino RN [facility] 08376 V72.31 272.0 790.6 Office Visit 08/23/2010 2:40p Verenice Espino, DONNA [facility] 63264 789.01 789.06 848.3 Office Visit 08/09/2010 1:40p Verenice Espino RN [facility] 04469 789.01 789.06 729.1 296.31 462 272.2 Office Visit 02/10/2010 1:15p Verenice Espino RN [facility] 91249 493.00 Office Visit 12/01/2009 9:30a Verenice Espino RN [place] [facility] 13245 V72.31 244.9 272.2 296.31 Office Visit 09/07/2009 11:00a Verenice Espino RN [facility] 40185 465.9 786.50 Office Visit 07/29/2009 8:00a Verenice Espino RN [place] [facility] 00846 401.1 244.9 786.59 Office Visit 04/08/2009 8:45a Verenice Espino RN [place] [facility] 04201 782.1 Office Visit 01/05/2009 3:00p Verenice Espino, DONNA [place] [facility] 91150 528.3 Office Visit 11/30/2008 8:15a Verenice Espino RN [place] [facility] 66079 V72.31 272.2 477.9 780.79 883.0 493.00 569.49 V06.1 Office Visit 10/19/2008 11:15a Verenice Espino RN [place] [facility] 92750 780.79 477.9 Office Visit 06/23/2008 11:15a Verenice Espino RN [place] [facility] 43368 465.9 272.0 Office Visit 04/07/2008 11:00a Verenice Espino RN [place] [facility] 60735 789.09 272.0 401.1 Office Visit 11/27/2007 8:15a Verenice Espino RN [place] [facility] 98024 V72.31 493.00 244.9 V58.69 272.0 Office Visit 09/12/2007 9:30a Verenice Espino RN [place] [facility] 15726 272.0 401.1 244.9 461.0 Plan of Care Future Appointment(s):11/21/2017 9:40 am - Verenice Bonilla RN [place] [employer] at [facility]/19/2017 - Nasra Herrera MDZ01.818 Encounter for other preprocedural eqnqazvbahvV29.141A Displaced bicondylar fracture of RIGHT tibia, initE78.00 Pure hypercholesterolemia, hnfaxnsxvvrR41.9 Vitamin D deficiency, kcswfulcbinV89.9 Hypothyroidism, unspecified
--- OUTSIDE RECORDS SUMMARY | 2017-11-22 07:37 | XMS REPORT ---
:1955 External Reference #:[id number] Author Organization [facility] Address [address] [address] Phone [phone] Care Team Providers Name Role Phone Verenice Bonilla, VOICE ENGINEER Primary Care Physician Unavailable Payers Type Date Identification Numbers Payment Provider Subscriber Commercial Policy Number: [id number] [employer] Yesenia Pinzon Group Number: [id number] [address] PayID: [id number] TRACY Rodriguez [phone] Medigap Part B Expires: 2016 Policy Number: [employer] Insurance Yesenia Pinzon [id number] Group Number: [id number] [address] PayID: [id number] TRACY Rodriguez [phone] Workers Effective: Policy Number: Trey Carmichael Compensation 2016 [id number] Airam Pinzon Onset: 2015 Group Name: [id number] [address] PayID: LAINE Ramirez [phone] Workers Effective: Policy Number: Trey Waltongy L Compensation 2016 [id number] Derrick Jeromy Expires: 2016 Group Name: Nae [id number] [address] Onset: 1920 PayID: [id number] LAINE Whitaker [phone] Workers Expires: Policy Number: Trey Waltongy L Compensation 2016 [id number] Derrick Pinzon Onset: 2015 Group Name: [id number] [address] PayID: LAINE Ramirez [phone] Problems Date Description Provider Status Onset: 05/06/2015 Localized, primary osteoarthritis Avis Sheldon M.D. Active Onset: 05/06/2015 Knee joint effusion Avis Sheldon M.D. Active Onset: 05/06/2015 Sprain of medial collateral ligament of Avis Sheldon M.D. Active right knee, subs Onset: 05/17/2015 Complex tear of medial mensc, current Avis Sheldon M.D. Active injury, r knee, subs Onset: 12/28/2016 Carpal tunnel syndrome of left wrist CHRISTINE Woodward Active Family History Date Family Member(s) Problem(s) Comments General No Current Problems Social History Type Date Description Comments Lives With Alone Occupation Currently Working ETOH Use Negative For Denies alcohol use Smoking Patient is a former smoker Exercise Type/Frequency Exercises regularly Allergies, Adverse Reactions, Alerts Date Description Reaction Status Severity Comments 07/09/2013 Sulfa Antibiotics active Medications Medication Date Status Form Strength Qnty SIG Indications Ordering Provider Jason 06/11/ Active Gel 1% 100gm apply 3 M25.561 Avis 2016 times Pito, daily as M.D. needed Levothyroxine / Active Tablets 75mcg take 1 Unknown Sodium 0000 tablet by mouth every morning Sertraline HCL / Active Tablets 50mg take 1/2 Unknown 0000 tablet by mouth once daily Crestor / Active Tablets 10mg 1 by mouth Unknown 0000 every day Aleve / Active Capsules 220mg 1-2 by Unknown 0000 mouth twice a day as needed Prilosec OTC / Active Tablets DR 20mg 1 by mouth Unknown 0000 every day Vitamin E 00/00/ Active daily Unknown 0000 Vitamin D 00/ Active daily Unknown 0000 Krill Oil / Active Capsules 350mg once a day Unknown 0000 Probiotic 00/ Active Capsules 1 by mouth Unknown 0000 every day Move Easy / Active Unknown 0000 Meloxicam 12/29/ Hx Tablets 15mg 60tabs 1 by mouth M25.561 Avis2016 - every day Pito, 04/11/ M.D. 2017 [place] 12/28/ Hx Tablets 5-325mg 30tabs one tabs Dilia 2016 - by mouth Poon, 12/28/ every 4-6 M.D. 2016 hours as needed pain Colace 12/28/ Hx Capsules 100mg 30caps one tablet Dilia 2016 - twice Poon, 12/28/ daily M.D. 2016 post-opera tively Naproxen 09/13/ Hx Tablets 500mg 60tabs 1 tablet M25.561 Avis 2016 - with food Pito, 12/28/ by mouth M.D. 2016 twice a day T.E.D. 10/07/ Hx Misc size R60.0 Aida Anti-Embolism 2015 - large, Bordoni, Stockings Knee 01/09/ strength VOICE ENGINEER Length 2016 20-30 mmhg Naproxen 05/17/ Hx Tablets 500mg 60tabs 1 tablet S83.411D Avis 2014 - with food Pito, 12/28/ by mouth M.D. 2016 twice a day Oxycodone-Aceta 05/17/ Hx Tablets 5-325mg 90tabs 1-2 by Aida melgoza 2014 - mouth Bordoni, 08/13/ every 4-6 VOICE ENGINEER 2016 hours as needed for pain. Colace 05/17/ Hx Capsules 100mg 90caps 1 by mouth Aida 2014 - up to 3 Bordoni, 08/13/ times a VOICE ENGINEER 2016 day as needed for constipati on. Aspirin Ec 05/17/ Hx Tablets DR 325mg 30tabs 1 by mouth Aida 2014 - twice Bordoni, 08/13/ daily for VOICE ENGINEER 2016 14 days to prevent blood clots Naproxen 07/09/ Hx Tablets 500mg 40tabs 1 tablet Avis 2012 - with food Pito, 05/17/ po bid M.D. 2014 Lovastatin / Hx Tablets 20mg Unknown - 2016 Tylenol / Hx Tablets ER 650mg Unknown Arthritis - 2016 Medications Administered in Office Medication Date Status Form Strength Qnty SIG Indications Ordering Provider Synvisc Or Administered Injection Avis Synvisc-One Yovanny Sheldon M.D. Injection 1 MG Synvisc Or Administered Injection Avis Synvisc-One Yovanny Sheldon M.D. Injection 1 MG Synvisc Or Administered Injection Avis Synvisc-One 018 Gauri Sheldon Injection 1 MG Depomedrol Administered Injection Avis 40MG 017 Gauri Sheldon Vital Signs Date Vital Result Comment 11/16/2017 Height 64 inches 5'4" Heart Rate 96 /min BP Systolic 138 mmHg BP Diastolic 76 mmHg Respiratory Rate 16 /min Body Temperature 98.1 F Pain Level 9 09/03/2017 Height 64 inches 5'4" Weight 175.00 lb Heart Rate 84 /min BP Systolic 136 mmHg BP Diastolic 90 mmHg BMI (Body Mass Index) 30.0 kg/m2 08/10/2017 Height 64 inches 5'4" Weight 175.00 lb BP Systolic 138 mmHg BP Diastolic 84 mmHg Body Temperature 98.5 F BMI (Body Mass Index) 30.0 kg/m2 08/03/2017 Height 64 inches 5'4" Weight 175.00 lb BP Systolic 130 mmHg BP Diastolic 82 mmHg Respiratory Rate 15 /min Pain Level 5 BMI (Body Mass Index) 30.0 kg/m2 07/27/2017 Height 64 inches 5'4" Weight 175.00 lb BP Systolic 117 mmHg BP Diastolic 69 mmHg Respiratory Rate 16 /min Body Temperature 97.0 F Pain Level 3 BMI (Body Mass Index) 30.0 kg/m2 06/11/2017 Height 64 inches 5'4" Weight 176.00 lb w/ shoes Heart Rate 82 /min reg BP Systolic Sitting 104 mmHg Lue, lg cuff BP Diastolic Sitting 76 mmHg Lue, lg cuff Respiratory Rate 16 /min BMI (Body Mass Index) 30.2 kg/m2 02/19/2017 Height 64 inches 5'4" Weight 175.00 lb BP Systolic 130 mmHg BP Diastolic 76 mmHg Respiratory Rate 20 /min Pain Level 4 BMI (Body Mass Index) 30.0 kg/m2 01/22/2017 Height 64 inches 5'4" Weight 175.00 lb Heart Rate 76 /min BP Systolic 130 mmHg BP Diastolic 80 mmHg Respiratory Rate 15 /min Body Temperature 95.8 F Pain Level 4 BMI (Body Mass Index) 30.0 kg/m2 01/10/2017 Height 64 inches 5'4" Weight 175.00 lb BP Systolic 140 mmHg BP Diastolic 92 mmHg Body Temperature 97.4 F Pain Level 1 BMI (Body Mass Index) 30.0 kg/m2 12/29/2016 Height 64 inches 5'4" Weight 175.00 lb Heart Rate 88 /min BP Systolic 144 mmHg BP Diastolic 80 mmHg BMI (Body Mass Index) 30.0 kg/m2 12/28/2016 Height 64 inches 5'4" Weight 174.00 lb Heart Rate 88 /min BP Systolic 130 mmHg BP Diastolic 90 mmHg Respiratory Rate 18 /min Body Temperature 96.7 F Pain Level 3 BMI (Body Mass Index) 29.9 kg/m2 10/26/2016 Height 64 inches 5'4" Weight 174.00 lb Heart Rate 84 /min BP Systolic 139 mmHg BP Diastolic 92 mmHg Respiratory Rate 17 /min Body Temperature 97.9 F Pain Level 3 BMI (Body Mass Index) 29.9 kg/m2 09/29/2016 Height 64 inches 5'4" Weight 170.00 lb Heart Rate 89 /min BP Systolic 119 mmHg BP Diastolic 76 mmHg Respiratory Rate 20 /min Body Temperature 98.1 F Pain Level 3 BMI (Body Mass Index) 29.2 kg/m2 09/13/2016 Height 64 inches 5'4" Weight 170.00 lb BP Systolic 122 mmHg BP Diastolic 80 mmHg Respiratory Rate 18 /min Pain Level 6 BMI (Body Mass Index) 29.2 kg/m2 10/08/2015 Height 64 inches 5'4" Weight 179.00 lb Heart Rate 64 /min BP Systolic Sitting 132 mmHg BP Diastolic Sitting 64 mmHg Respiratory Rate 16 /min Pain Level 0 BMI (Body Mass Index) 30.7 kg/m2 08/18/2015 Height 64 inches 5'4" Weight 170.00 lb Pain Level 1 BMI (Body Mass Index) 29.2 kg/m2 07/07/2015 Height 64 inches 5'4" Weight 170.00 lb Pain Level 3 BMI (Body Mass Index) 29.2 kg/m2 06/21/2015 Height 64 inches 5'4" Weight 170.00 lb Pain Level 6 BMI (Body Mass Index) 29.2 kg/m2 06/07/2015 Height 64 inches 5'4" Weight 170.00 lb Body Temperature 97.7 F BMI (Body Mass Index) 29.2 kg/m2 05/17/2015 Height 64 inches 5'4" Weight 170.00 lb Pain Level 4 BMI (Body Mass Index) 29.2 kg/m2 05/06/2015 Height 64 inches 5'4" Weight 170.00 lb Pain Level 3 BMI (Body Mass Index) 29.2 kg/m2 04/08/2015 Height 64 inches 5'4" Weight 170.00 lb Pain Level 5 BMI (Body Mass Index) 29.2 kg/m2 09/26/2013 Height 64 inches 5'4" Weight 170.00 lb Heart Rate 80 /min BP Systolic 139 mmHg BP Diastolic 96 mmHg BMI (Body Mass Index) 29.2 kg/m2 07/09/2013 Height 64 inches 5'4" Weight 175.00 lb Heart Rate 87 /min BP Systolic 149 mmHg BP Diastolic 88 mmHg BMI (Body Mass Index) 30.0 kg/m2 Results Test Date Test Result H/L Range Note Urinalysis Profile 05/21/2015 Urine Color Straw Urine Appearance Clear Urine Specific [place] 1.006 Low 1.010-1.030 Urine pH 6.0 5-9 Urine Urobilinogen Negative Negative Urine Ketones Negative Negative Urine Protein Negative Negative Urine Leukocytes Negative Negative Urine Blood Negative Negative Urine Nitrite Negative Negative Urine Bilirubin Negative Negative Urine Glucose Negative Negative CBC No Diff 05/21/2015 White Blood Count 6.2 10^3/uL 4.8-10.8 Red Blood Count 4.90 10^6/uL 4.0-5.4 Hemoglobin 14.5 g/dL 12.0-16.0 Hematocrit 44 % 35-47 Mean Corpuscular Volume 91 fL 80-97 Mean Corpuscular Hemoglobin 30 pg 27-31 Mean Corpuscular HGB Conc 33 g/dL 31-36 Red Cell Distribution Width 14 % 10.5-15 Platelet Count 277 10^3/uL 150-450 Mean Platelet Volume 9 um3 7.4-10.4 Comp Metabolic Panel 05/21/2015 Sodium 137 mmol/L 133-145 Potassium 3.8 mmol/L 3.5-5.0 Chloride 100 mmol/L Low 101-111 Co2 Carbon Dioxide 28 mmol/L 22-32 Anion Gap 9 mmol/L 2-11 Glucose 92 mg/dL 70-100 Blood Urea Nitrogen 15 mg/dL 6-24 Creatinine 0.69 mg/dL 0.51-0.95 BUN/Creatinine Ratio 21.7 High 8-20 Calcium 10.5 mg/dL High 8.6-10.3 Total Protein 7.3 g/dL 6.4-8.9 Albumin 4.7 g/dL 3.2-5.2 Globulin 2.6 g/dL 2-4 Albumin/Globulin Ratio 1.8 1-3 Total Bilirubin 1.00 mg/dL 0.2-1.0 Alkaline Phosphatase 61 U/L 34-104 Alt 20 U/L 7-52 Ast 16 U/L 13-39 Egfr Non- 87.7 >60 Egfr 112.8 >60 1 Inr/Protime 05/21/2015 Inr 0.95 0.89-1.11 2 Laboratory test finding 05/21/2015 Partial Thrombo Time 35.0 seconds 26.0 -36.3 3 PTT Urine Culture And Sensitivities SEE RESULT BELOW 4 1 Because ethnic data is not always readily available, this report includes an eGFR for both -Americans and non- Americans. The National Kidney Disease Education Program (NKDEP) does not endorse the use of the MDRD equation for patients that are not between the ages of 18 and 70, are , have extremes of body size, muscle mass, or nutritional status, or are non- or non-. According to the National Kidney Foundation, irrespective of diagnosis, the stage of the disease is based on the level of kidney function: Stage Description GFR(mL/min/1.73 m(2)) 1 Kidney damage with normal or decreased GFR 90 2 Kidney damage with mild decrease in GFR 60-89 3 Moderate decrease in GFR 30-59 4 Severe decrease in GFR 15-29 5 Kidney failure <15 (or dialysis) 2 Effective immediately, due to a laboratory mean normal Protime change, the reference range for the INR has changed. 3 SDS 05/27 4 SEE RESULT BELOW Name: YESENIA PINZON : [address]: Avis Sheldon MD Acct: [id number] Unit: [id number] AGE: 59 Location: [facility] Re05/21/15 SEX: F Status: REG REF SPEC: [id number] SUSAN: 05/21/15-[address] [facility] [address]: Avis Sheldon MD REQ: [id number] RECD: 05/21/15 STATUS: COMP _ SOURCE: URINE SPDESC: ORDERED: Urine Culture COMMENTS: FABIOLA 05/27 QUERIES: Urine Source: Clean Catch Procedure Result Verified Site Urine Culture Final 05/23/15- 0939 ML No Growth Day 2 (<1,000 CFU/mL) * ML - MAIN LAB (PSYCHIATRIC1) . END OF REPORT * ML=Testing performed at Main Lab DEPARTMENT OF PATHOLOGY, [address] [place] [id number] Emeka Barragan M.D. Director [facility] # [id number] Procedures Date CPT Code Description Status 08/10/201703299 Inject/Drain Joint/Bursa Major Completed 08/03/2017 Inject/Drain Joint/Bursa Major Completed 07/27/201756042 Inject/Drain Joint/Bursa Major Completed 01/12/2017 68849 Carpal Tunnel Release Completed 12/29/201645940 Inject/Drain Joint/Bursa Major Completed 05/27/2015 30926 Arthroscopy,Knee,Meniscectomy Medial Or Lateral Completed 05/27/2015 39113 Arthroscopy,Knee,Meniscectomy Medial Or Lateral Completed 05/27/2015 46146 Arthroscopy,Knee,Meniscectomy Medial Or Lateral Completed 07/09/2013 25119 Xray Knee 3 Views Completed Encounters Type Date Location Provider CPT E/M Dx Office Visit 09/03/2017 [facility] Avis Sheldon M.D. 42447 S83.411A 9:45a Of C.MPreetiAPreeti M17.11 M25.461 Office Visit 06/11/2017 11:15a [facility] Avis Sheldon M.D. 36973 M25.561 C.M.APreeti M25.461 M17.11 Office Visit 01/10/2017 10:30a [facility] Avis Sheldon M.D. 33957 M25.561 C.M.APreeti M25.461 M17.11 Office Visit 12/29/2016 11:30a [facility] Avis Sheldon M.D. 00165 M25.561 C.[facility]. M25.461 M17.11 Office Visit 10/26/2016 10:30a [facility] Dilia Poon, 10739 G56.02 Of [place] Office Visit 09/29/2016 2:15p [facility] Avis Sheldon M.D. 29896 M25.561 Of C.M.APreeti M25.461 M17.11 Office Visit 09/13/2016 9:00a [facility] Avis Sheldon M.D. 75309 M25.561 C.M.A. M25.461 M17.11 Office Visit 10/08/2015 2:45p [facility] Avis Sheldon, 49645 R60.0 C.M.Hortensia [place] Office Visit 05/17/2015 9:00a [facility] Avis Sheldon, 40300 S83.411D C.M.Hortensia [place] S83.411D M17.11 M17.11 S83.231D S83.231D Office Visit 05/06/2015 9:45a [facility] Of Avismarli Sheldon, 86253 S83.411D C.M.Hortensia [place] M17.11 M25.461 Office Visit 04/08/2015 2:30p [facility] Avis Sheldon M.D. 82009 719.06 C.M.A. 844.1 715.96 Office Visit 09/26/2013 9:30a [facility] Avis Sheldon M.D. 48756 715.16 C.M.A. Office Visit 07/28/2013 9:15a [facility] Avis Sheldon M.D. 80330 719.06 C.M.A. 715.16 Office Visit 07/09/2013 1:45p [facility] Avis Sheldon M.D. 17149 719.06 C.M.A. 715.16 Plan of Care Future Appointment(s):11/22/2017 4:30 pm - Shay Pride PA-C at [facility]11/22/2017 4:30 pm - CHRISTINE Andrew at [facility]11/22/2017 4:30 pm - Avis Sheldon M.D. at [facility]11/21/2017 10:15 am - Avis Sheldon M.D. at [facility]11/16/2017 - Avis Sheldon M.D.M25.561 Pain in right kneeFollow up:Follow up: fspvdezrsV88.461 Effusion, right kneeW19.xxxA Unspecified fall, initial mulzanadpQ54.121A Disp fx of lateral condyle of right tibia, init for clos fxNew Xrays:CT Extremity Lower Right WoM25.522 Pain in left elbow
[2017-11-22] MEDS ORDERED: Dexamethasone IV* 4 MG/ML 1 ML (4 MG) ONE (07:46)
[2017-11-22] MEDS ORDERED: Famotidine TAB* 20 MG ONE (07:46)
[2017-11-22] MEDS ORDERED: ceFAZolin 2 GM PREMIX (*) 2 GM/50 ML BAG IVPB ONE (07:46)
[2017-11-22] MEDS ORDERED: Bupivacaine 0.25% SDV* 30 ML ONE (09:05)
[2017-11-22] MEDS ORDERED: Midazolam* 1 MG/ML 5 ML VIAL (5 MG) ONE (09:12)
[2017-11-22] MEDS ORDERED: fentaNYL* 50 MCG/ML 2 ML VIAL (100 MCG VIAL) ONE ×3 (09:12→12:26)
[2017-11-22] MEDS ORDERED: Propofol* 10 MG/ML 20 ML BTL IV PUSH ONE (09:15)
[2017-11-22] MEDS ORDERED: Lidocaine 2% PF * 5 ML VIAL ONE (09:15)
[2017-11-22] MEDS ORDERED: Ketorolac INJ* 30 MG/ML 1 ML VIAL ONE (09:41)
[2017-11-22] MEDS ORDERED: HYDROcodone/ACETAMIN 5-325 MG* 1 TAB PO PRN (09:57)
[2017-11-22] MEDS ORDERED: Naloxone* 0.4 MG/ML 1 ML VIAL IV PRN (09:57)
[2017-11-22] MEDS ORDERED: DiMENhydriNATE IV* 50 MG/ML VIAL IV PUSH PRN (09:57)
[2017-11-22] MEDS ORDERED: fentaNYL* 50 MCG/ML 2 ML VIAL (100 MCG VIAL) IV PRN (09:57)
[2017-11-22] MEDS ORDERED: Ondansetron INJ* 2 MG/ML VIAL ONE (10:59)
--- NOTE | 2017-11-22 13:05 | RAD ---
INDICATION: Needle count postoperative COMPARISON: None TECHNIQUE: AP and lateral views were obtained. FINDINGS: There is ORIF of the tibial plateau fracture. The fracture fragments are in good position and alignment with cortical plate and screws bridging the proximal tibial fractures. There are no findings to suggest hardware failure. There are soft tissue changes consistent with the recent surgery. There are skin stables place both laterally and medially. There is no evidence of metallic foreign body to suggest retained suture needle. IMPRESSION: POSTOPERATIVE CHANGES DESCRIBED. NO RADIOGRAPHIC FINDINGS TO SUGGEST A FOREIGN BODY.
[2017-11-22] MEDS ORDERED: diPHENhydraMINE IV* 50 MG/ML 1 ml VIAL (BENADRYL) IV PRN (13:09)
[2017-11-22] MEDS ORDERED: Morphine VIAL* 4 MG/ML VIAL (1 ml vial) IV PRN (13:09)
[2017-11-22] MEDS ORDERED: traZODone TAB* 50 MG TAB PO PRN (13:09)
[2017-11-22] MEDS ORDERED: Ondansetron INJ* 2 MG/ML VIAL IV PRN (13:09)
--- NOTE | 2017-11-22 13:12 | RAD ---
INDICATION: Right tibial plateau ORIF, S 82.121A COMPARISONS: CT dated November 19, 2017 TECHNIQUE: Fluoroscopy was provided for a surgical procedure. Total fluoroscopy time is: 64.4 seconds FINDINGS: Spot images demonstrate internal fixation of the proximal tibia. IMPRESSION: FLUOROSCOPY WAS PROVIDED FOR A SURGICAL PROCEDURE CPT II Codes: G9500
[2017-11-22] MEDS ORDERED: Dicyclomine CAP* 10 MG PO PRN (13:20)
[2017-11-22] MEDS ORDERED: Albuterol HFA INHALER* 8 gm MDI INH PRN (13:20)
[2017-11-22] MEDS ORDERED: Acetaminophen TAB* 325 MG PO PRN (13:20)
[2017-11-22] MEDS ORDERED: NON FORMULARY MED* (Melatonin [Melatonin] 10 MG) PO PRN (13:20)
[2017-11-22] MEDS ORDERED: Labetalol IV* 5 MG/ML 20 ML VIAL ONE (13:31)
[2017-11-22 13:42] LABS: Hematocrit 36 % (35-47); Hemoglobin 11.9 g/dl (12.0-16.0)
[2017-11-22] MEDS ORDERED: oxyCODONE/Acetamin 5/325 MG* TAB ONE ×2 (13:51→13:54)
[2017-11-22] MEDS: oxyCODONE/Acetamin 5/325 MG* TAB PO PRN ×2 (13:53→13:55)
--- NOTE | 2017-11-22 14:32 | OP ---
Operative Report - Blank - Operative Report Date of Operation: 11/22/17 Note: PATIENT: Anabel Pinzon DATE OF : 1955 DATE OF SURGERY: 11/22/2017 SURGEON: Chino Patricio MD SHOE STAINER: CHRISTINE Rios, whos assistance was necessary for positioning, retraction, help with instrumentation, and closure. ANESTHESIOLOGIST: Zaire Richmond MD PREOPERATIVE DIAGNOSIS: Right bicondylar tibial plateau fracture POSTOPERATIVE DIAGNOSIS: Right bicondylar tibial plateau fracture and lateral meniscus tear OPERATION: 1. Right bicondylar tibial plateau fracture open reduction and internal fixation 2. Right knee arthrotomy with repair of lateral meniscus tear ANESTHESIA: GETA IMPLANTS: Synthes proximal tibia plates TOURNIQUET TIME: Less than 2 hours with a well-padded thigh tourniquet SPECIMENS: none ESTIMATED BLOOD LOSS: minimal COMPLICATIONS: none STATUS: Stable from the operating room to the recovery room and then to the hospital floor. INDICATIONS FOR PROCEDURE: Anabel sustained a fall off of a loading dock one week ago sustaining a closed right bicondylar tibial plateau fracture. Both operative and non operative treatment alternatives were reviewed. Further, the nature and risks of surgery were reviewed in careful detail, in the office as well as the pre-operative holding area. Our discussions regarding the risks of surgery included, but were not limited to, infection, wound problems, nerve injury, neuroma, RSD, persistent symptoms, blood clot, failure of the surgery, posttraumatic arthritis , malunion, nonunion, compartment syndrome, and even the remote chance of catastrophic complication, including loss of limb or . DESCRIPTION OF PROCEDURE: The patient was seen in the preoperative holding unit and informed written consent was obtained. The appropriate extremity was marked. The patient was then brought to the operating room and carefully positioned on the operating room table. Anesthesia was induced. All bony prominences were padded with great care. A well-padded thigh tourniquet was placed. A chlorhexidine based pre- scrub was performed followed by a chloraprep prep and drape in standard sterile fashion. A surgical safety pause was then conducted in which we confirmed the appropriate patient, extremity, planned procedure, availability of equipment, indication and administration of prophylactic antibiotics, and DVT prophylaxis in the form of a compression boot on the non-surgical extremity. We began with an Esmarch exsanguination of the limb and inflated the tourniquet. I started with a longitudinal incision medially along the posterior crest of the proximal tibia. Blunt dissection was used through the subcutaneous tissue to get down to the layer of the sartorial fascia. I was careful to protect the saphenous nerve and vein throughout the course of the procedure. The pes anserinus was exposed. The pes anserinus was then tagged, incised, and reflected posteriorly to expose the posteromedial edge of the proximal tibia. The MCL was visualized on the bone and was left intact. The medial head of the gastrocnemius was then gently retracted laterally. This exposed the posteromedial tibial plateau and fracture. The fracture edges were cleaned and defined. The fracture was exposed and fracture hematoma removed. The fracture was then reduced and provisionally held with large reduction clamps and K wires. Fluoroscopy was used to confirm the reduction. A Synthes posteromedial proximal tibia plate was then placed on the proximal tibia in a buttress plate fashion. Fluoroscopy was again used to confirm placement of the plate. I then placed the 3.5 mm screws into the plate and the provisional fixation was removed. Fluoroscopy confirmed maintained reduction of the fracture and satisfactory hardware placement. The tourniquet was then released and meticulous hemostasis was achieved. The pes anserinus was then repaired. The wound was copiously irrigated and packed with sponges while attention was turned to the lateral plateau fracture. The leg was then exsanguinated again and the tourniquet reinflated. An S- shaped longitudinal incision was made laterally at the knee and proximal tibia. I dissected down to the fascial layer. The tibialis anterior was then reflected posteriorly to expose the proximal lateral tibia. An arthrotomy was then made at the lateral joint line distal to the lateral meniscus. This provided visualization of the lateral plateau as well as the lateral meniscus. There was a longitudinal tear of the lateral meniscus found. An ACL cannulated reamer was used to drill a large drill hole under fluoroscopic guidance to access the depressed part of the lateral plateau. Bone tamps were then used to elevate the articular surface of the lateral tibial plateau. This was provisionally held with rafting K wires. Fluoroscopy was used to confirm the reduction. The lateral plateau split fracture was then reduced and held provisionally with a large reduction clamp and K wires. A Synthes anatomic proximal tibia plate was then placed along the lateral proximal tibia. Fluoroscopy was used to confirm placement of the plate. I then placed the 3.5 mm screws into the plate and the provisional fixation was removed. Fluoroscopy confirmed maintained reduction of the fracture and satisfactory hardware placement. Synthes calcium phosphate cement (Norian) was then injected to fill the void and support the now-reduced depressed lateral plateau. I then repaired the lateral meniscus with a horizontal mattress suture. The joint was then irrigated and the meniscocapsular ligaments were then repaired to close the arthrotomy. The tourniquet was again released and meticulous hemostasis achieved. Final fluoroscopic images were then obtained. Both the medial and lateral wounds were copiously irrigated again. Both wounds were then closed in a layered fashion utilizing #1 vicryl, 0 Vicryl for the deep layer, 3-0 Monocryl for the dermal layer, and skin gemma for the skin. A sterile dressing was then applied, as well as a hinged knee brace with the knee locked in extension. The sponge count was correct at the end of the case. The needle count was incorrect so formal x-rays were obtained and were read by radiology and did not show any retained needles. I also reviewed the x-rays and did not see any retained needles. The patient was then awakened from anesthesia and transferred to the recovery room in stable condition. There were no complications. ATTESTATION: I attest I was present and scrubbed and performed the critical portions of the procedure myself. POSTOPERATIVE PLAN: The plan is to remain touch down weight-bearing for an anticipated duration of 2 months. Range of motion as tolerated at the knee with the hinged knee brace on. The plan is for chemical DVT prophylaxis for 1 month postoperatively. Follow-up in 2 weeks for likely staple removal.
[2017-11-22] MEDS: oxyCODONE TAB* 5 MG TAB PO PRN ×2 (16:48→21:31)
[2017-11-22] MEDS: ceFAZolin 1 GM in Dextrose (*) 1 GM/50 ML BAG IVPB SCH (17:43)
[2017-11-22] MEDS: Sertraline* 25 MG TAB PO SCH (17:45)
[2017-11-22] MEDS: Atorvastatin* 10 MG TAB PO SCH (17:45)
[2017-11-22] MEDS: Ketorolac INJ* 30 MG/ML 1 ML VIAL IV PUSH PRN (20:20)
[2017-11-22] MEDS: Docusate CAP* 100 MG PO SCH (20:20)
[2017-11-22] MEDS: Ferrous Sulfate TAB* 325 MG PO SCH (20:20)
[2017-11-23] MEDS: ceFAZolin 1 GM in Dextrose (*) 1 GM/50 ML BAG IVPB SCH ×2 (01:48→09:52)
[2017-11-23] MEDS: oxyCODONE TAB* 5 MG TAB PO PRN ×6 (01:51→22:55)
[2017-11-23] MEDS: Ketorolac INJ* 30 MG/ML 1 ML VIAL IV PUSH PRN ×4 (03:36→22:55)
[2017-11-23 05:40] LABS: Mean Platelet Volume 7.6 um3 (7.4-10.4); Platelet Count 299 10^3/ul (150-450)
[2017-11-23 05:54] LABS: EGFR Non-African American 72.1 (>60)
[2017-11-23] MEDS: Levothyroxine TAB* 75 MCG TAB PO SCH (06:26)
[2017-11-23] MEDS: Omeprazole CAP* 20 MG PO SCH (08:23)
[2017-11-23] MEDS: Lactobacillus Acidophilus* 1 TAB PO SCH (08:23)
[2017-11-23] MEDS: Ferrous Sulfate TAB* 325 MG PO SCH ×2 (08:23→19:59)
[2017-11-23] MEDS: Docusate CAP* 100 MG PO SCH ×2 (08:24→19:59)
[2017-11-23] MEDS: Cholecalciferol TAB* 1000 UNITS PO SCH (08:24)
[2017-11-23] MEDS: Cetirizine* 10 MG TAB PO SCH (08:24)
[2017-11-23] MEDS: Vitamin THERAPEUTIC TAB PO SCH (08:24)
[2017-11-23] MEDS: Enoxaparin(*) 40 MG/0.4 ML SYR SUBCUT SCH (08:25)
[2017-11-23] MEDS: KRILL OIL 500 MG PO SCH (08:25)
--- NOTE | 2017-11-23 14:36 | PN ---
Progress Note - Progress Note Date of Service: 11/23/17 SOAP: Subjective: 62 year odl female s/p ORIF 11/[address] Patricio, no questions re: surgery, reviewed post-op course, no other complaints, pain controlled. VSS afebrile. Objective: General- Well appearing, NAD AO MSK- Dressing intact, no drainage noted, hinged knee brace on. decreased sensation to light touch over ankle, moderate edema, + DF/PF. PT 2+ Vital Signs Temp 98.4 F 11/23/17 08:07 Pulse 95 11/23/17 08:07 Resp 16 11/23/17 12:50 BP 128/48 11/23/17 08:07 Pulse Ox 100 11/23/17 12:40 Intake & Output 11/22/17 11/23/17 11/23/17 18:59 06:59 18:59 Intake Total 2009 2160 810 Output Total 750 700 725 Balance 1260 1460 85 Weight 73.936 kg Intake: IV Fluids 1250 980 LR 1250 980 Oral 760 1180 810 Output: Urine 750 700 725 Assessment: POD #1 S/P 1. Right bicondylar tibial plateau fracture open reduction and internal fixation 2. Right knee arthrotomy with repair of lateral meniscus tear Plan: - Hinged knee brace- on at all times ROM as tolerated at rest, may unlock, locked at all times with standing, transfers. toe touch weight bearing - Lovenox DVT prophylaxis, continue naticoag x 1 month - Follow up in 10-[address] Patricio Acetaminophen (Tylenol Tab*) 650 mg PO Q6HR PRN PRN Reason: PAIN Albuterol (Ventolin Hfa Inhaler*) 1 puff INH Q4H PRN PRN Reason: SOB/WHEEZING Atorvastatin Calcium (Lipitor*) 5 mg PO QPM PINA PRN Reason: Protocol Last Admin: 11/22/17 17:45 Dose: 5 mg Cetirizine HCl (Zyrtec*) 10 mg PO QAM PINA PRN Reason: Protocol Last Admin: 11/23/17 08:24 Dose: 10 mg Cholecalciferol (Vitamin D Tab*) 2,000 units PO QAM [facility] Last Admin: 11/23/17 08:24 Dose: 2,000 units Dicyclomine HCl (Bentyl Cap*) 10 mg PO TID PRN PRN Reason: IBS symptoms Diphenhydramine HCl (Benadryl Iv*) 25 mg IV Q6H PRN PRN Reason: itching Docusate Sodium (Colace Cap*) 100 mg PO BID [facility] Last Admin: 11/23/17 08:24 Dose: 100 mg Enoxaparin Sodium (Lovenox(*)) 40 mg SUBCUT Q24H [facility] Last Admin: 11/23/17 08:25 Dose: 40 mg Ferrous Sulfate (Ferrous Sulfate Tab*) 325 mg PO BID [facility] Last Admin: 11/23/17 08:23 Dose: 325 mg Lactated Ringer's (Lactated Ringers 1000 Ml Bag*) 1,000 mls @ 75 mls/hr IV PER RATE [facility] Last Admin: 11/23/17 03:37 Dose: 75 mls/hr Ketorolac Tromethamine (Toradol Inj*) 30 mg IV PUSH Q6H PRN PRN Reason: PAIN Last Admin: 11/23/17 09:51 Dose: 30 mg Lactobacillus Rhamnosus (Lactobacillus Acidophilus*) [facility] Last Admin: 11/23/17 08:23 Dose: 1 tab Levothyroxine Sodium (Synthroid Tab*) 75 mcg PO 0600 [facility] Last Admin: 11/23/17 06:26 Dose: 75 mcg Morphine Sulfate (Morphine Vial*) 2 mg IV Q2H PRN PRN Reason: PAIN Multivitamins (Theragran Tab*) 1 tab PO DAILY [facility] Last Admin: 11/23/17 08:24 Dose: 1 tab Non-Formulary Medication (Krill Oil [Krill Oil]) [facility] Last Admin: 11/23/17 08:25 Dose: Not Given Non-Formulary Medication (Melatonin [Melatonin]) 10 mg PO QPM PRN PRN Reason: SLEEP Omeprazole (Prilosec Cap*) 20 mg PO QAM [facility] Last Admin: 11/23/17 08:23 Dose: 20 mg Ondansetron HCl (Zofran Inj*) 4 mg IV Q6H PRN PRN Reason: nausea Oxycodone HCl (Roxycodone Tab*) 10 mg PO Q4H PRN PRN Reason: PAIN - SEVERE Last Admin: 11/23/17 12:50 Dose: 10 mg Oxycodone HCl (Roxycodone Tab*) 5 mg PO Q4H PRN PRN Reason: PAIN - MODERATE Last Admin: 11/23/17 08:24 Dose: 5 mg Sertraline HCl (Zoloft*) 25 mg PO QPM [facility] Last Admin: 11/22/17 17:45 Dose: 25 mg Trazodone HCl (Desyrel Tab*) 25 mg PO BEDTIME PRN PRN Reason: insomnia -
[2017-11-23] MEDS: Sertraline* 25 MG TAB PO SCH (17:54)
[2017-11-23] MEDS: Atorvastatin* 10 MG TAB PO SCH (17:54)
[2017-11-24] MEDS: Levothyroxine TAB* 75 MCG TAB PO SCH (06:13)
[2017-11-24] MEDS: oxyCODONE TAB* 5 MG TAB PO PRN ×5 (06:14→22:00)
[2017-11-24 06:28] LABS: Mean Platelet Volume 7.3 um3 (7.4-10.4); Platelet Count 301 10^3/ul (150-450)
[2017-11-24] MEDS: Vitamin THERAPEUTIC TAB PO SCH (08:52)
[2017-11-24] MEDS: Omeprazole CAP* 20 MG PO SCH (08:52)
[2017-11-24] MEDS: Cetirizine* 10 MG TAB PO SCH (08:53)
[2017-11-24] MEDS: Cholecalciferol TAB* 1000 UNITS PO SCH (08:53)
[2017-11-24] MEDS: Docusate CAP* 100 MG PO SCH ×2 (08:53→20:03)
[2017-11-24] MEDS: Ferrous Sulfate TAB* 325 MG PO SCH ×2 (08:53→22:00)
[2017-11-24] MEDS: Lactobacillus Acidophilus* 1 TAB PO SCH (08:53)
[2017-11-24] MEDS: Enoxaparin(*) 40 MG/0.4 ML SYR SUBCUT SCH (08:54)
[2017-11-24] MEDS: KRILL OIL 500 MG PO SCH (08:54)
--- NOTE | 2017-11-24 11:17 | PN ---
Progress Note - Progress Note Date of Service: 11/24/17 SOAP: Subjective: 62 year old female s/p ORIF R bicondylar tibial plateau fracture and arthrotomy with lateral meniscus repair on 11/[address] Patricio. Pain well controlled. No fevers, chills, N/V, calf pain, chest pain, SOB, numbness or tingling. VSS afebrile. Objective: Vital Signs Temp 98.8 F 11/24/17 07:49 Pulse 92 11/24/17 07:49 Resp 16 11/24/17 10:34 BP 149/79 11/24/17 07:49 Pulse Ox 97 11/24/17 08:50 Intake & Output 11/23/17 11/24/17 11/24/17 18:59 06:59 18:59 Intake Total 810 750 Output Total 925 1300 900 Balance -115 550 900 Intake: Oral 810 750 Output: Urine 925 1300 900 Laboratory Results - last 24 hr 11/24/17 06:16 Plt Count 301 MPV 7.3 L General- Well appearing, lying comfortably in bed, eating breakfast. NAD, AO MSK- Incisions clean, dry, intact, no erythema, drainage, warmth. Ecchymosis present proximal femur and calf. Calf soft, tender with significant eccymosis. Sensation intact to light touch distally. Moderate edema at ankle. + DF/PF. PT 2+. Assessment: POD #2 S/P ORIF R bicondylar tibial plateau fracture and arthrotomy with lateral meniscus repair. Plan: - Dressing changed today. - Hinged knee brace- on at all times ROM as tolerated at rest, may unlock, locked at all times with standing, transfers. toe touch weight bearing - Lovenox DVT prophylaxis, continue anticoag x 1 month - D/C planned for Sunday - Follow up in 10-[address] Patricio
[2017-11-24] MEDS: Sertraline* 25 MG TAB PO SCH (18:14)
[2017-11-24] MEDS: Atorvastatin* 10 MG TAB PO SCH (18:15)
[2017-11-25] MEDS: oxyCODONE TAB* 5 MG TAB PO PRN ×5 (02:41→21:19)
[2017-11-25 05:29] LABS: Mean Platelet Volume 7.6 um3 (7.4-10.4); Platelet Count 369 10^3/ul (150-450)
[2017-11-25] MEDS: Levothyroxine TAB* 75 MCG TAB PO SCH (05:46)
--- NOTE | 2017-11-25 08:10 | PN ---
Progress Note - Progress Note Date of Service: 11/25/17 SOAP: Subjective: 62 year old female s/p ORIF R bicondylar tibial plateau fracture and arthrotomy with lateral meniscus repair on 11/[address] Patricio. Slight increase in pain after PT yesterday, well controlled. No fevers, chills, N/V, calf pain, chest pain, SOB, numbness or tingling. VSS afebrile. Objective: Vital Signs Temp 98.2 F 11/25/17 03:11 Pulse 96 11/25/17 03:11 Resp 16 11/25/17 07:51 BP 106/62 11/25/17 03:11 Pulse Ox 95 11/25/17 03:11 Intake & Output 11/24/17 11/25/17 11/25/17 18:59 06:59 18:59 Intake Total 1310 660 Output Total 2475 1950 350 Balance -1165 -1290 -350 Intake: Oral 1310 660 Output: Urine 2475 1950 350 Other: Date of Last Bowel 11/24/17 Movement # Bowel Movements 1 Estimated Stool Amount Medium # Voids 1 Laboratory Results - last 24 hr 11/25/17 04:44 Plt Count 369 MPV 7.6 General- Well appearing, lying comfortably in bed. NAD, AO MSK- Right LE: Dressing C/D/I. Ecchymosis present proximal femur and distal calf. Calf soft, tender with significant ecchymosis. Sensation intact to light touch distally. Edema at ankle. + DF/PF. PT 2+. Assessment: POD #3 S/P ORIF R bicondylar tibial plateau fracture and arthrotomy with lateral meniscus repair. Plan: - Hinged knee brace- on at all times ROM as tolerated at rest, may unlock, locked at all times with standing, transfers. toe touch weight bearing - Lovenox DVT prophylaxis, continue anticoag x 1 month - D/C planned for Sunday - Follow up in 10-[address] Patricio in clinic
[2017-11-25] MEDS: Vitamin THERAPEUTIC TAB PO SCH (09:24)
[2017-11-25] MEDS: Lactobacillus Acidophilus* 1 TAB PO SCH (09:24)
[2017-11-25] MEDS: Omeprazole CAP* 20 MG PO SCH (09:24)
[2017-11-25] MEDS: Ferrous Sulfate TAB* 325 MG PO SCH ×2 (09:25→21:19)
[2017-11-25] MEDS: Cholecalciferol TAB* 1000 UNITS PO SCH (09:25)
[2017-11-25] MEDS: Cetirizine* 10 MG TAB PO SCH (09:26)
[2017-11-25] MEDS: Docusate CAP* 100 MG PO SCH ×2 (09:26→21:19)
[2017-11-25] MEDS: KRILL OIL 500 MG PO SCH (09:27)
[2017-11-25] MEDS: Enoxaparin(*) 40 MG/0.4 ML SYR SUBCUT SCH (09:27)
[2017-11-25] MEDS: Atorvastatin* 10 MG TAB PO SCH (16:44)
[2017-11-25] MEDS: Sertraline* 25 MG TAB PO SCH (16:44)
[2017-11-26 05:37] LABS: Mean Platelet Volume 7.5 um3 (7.4-10.4); Platelet Count 417 10^3/ul (150-450)
[2017-11-26] MEDS: Levothyroxine TAB* 75 MCG TAB PO SCH (05:41)
[2017-11-26] MEDS: oxyCODONE TAB* 5 MG TAB PO PRN ×3 (05:41→14:48)
[2017-11-26] MEDS: Enoxaparin(*) 40 MG/0.4 ML SYR SUBCUT SCH (09:03)
[2017-11-26] MEDS: Omeprazole CAP* 20 MG PO SCH (09:04)
[2017-11-26] MEDS: Lactobacillus Acidophilus* 1 TAB PO SCH (09:04)
[2017-11-26] MEDS: Cholecalciferol TAB* 1000 UNITS PO SCH (09:04)
[2017-11-26] MEDS: Ferrous Sulfate TAB* 325 MG PO SCH (09:04)
[2017-11-26] MEDS: Vitamin THERAPEUTIC TAB PO SCH (09:04)
[2017-11-26] MEDS: Cetirizine* 10 MG TAB PO SCH (09:04)
[2017-11-26] MEDS: Docusate CAP* 100 MG PO SCH (09:04)
[2017-11-26] MEDS: KRILL OIL 500 MG PO SCH (09:06)
--- NOTE | 2017-11-26 11:10 | PN ---
Progress Note - Progress Note Date of Service: 11/26/17 SOAP: Subjective: 62 y/o female POD #4 S/P ORIF R bicondylar tibial plateau fracture and arthrotomy with lateral meniscus repair. Patient working well with PT, feels OK for d/c to home today, understands precautions. VSS, afebrile overnight. Objective: General- Well appearing, NAD, AO sitting in chair comfortably. MSK- LLE- DF/PF+, PT 2+, negative homans sign i c/d/i, mild erythema around lateral incision. redressed. SITLT distally, numbness around incisions. moderate edema around knee. Vital Signs Temp 97.9 F 11/26/17 03:12 Pulse 85 11/26/17 03:12 Resp 18 11/26/17 10:12 BP 114/62 11/26/17 03:12 Pulse Ox 96 11/26/17 04:36 Intake & Output 11/25/17 11/26/17 11/26/17 18:59 06:59 18:59 Intake Total 0 940 Output Total 1450 600 400 Balance -1450 340 -400 Intake: Oral 0 940 Output: Urine 1450 600 400 Other: Date of Last Bowel 11/25/17 Movement # Bowel Movements 1 0 Estimated Stool Amount Medium # Voids 1 Assessment: Stable POD #4 S/P ORIF R bicondylar tibial plateau fracture and arthrotomy with lateral meniscus repair. Plan: - DVT prophylaxis- lovenox in house, eliquis at home - Continue PT/ OT as shown at home - Follow up with Dr. Patricio - H&H - Stable - post-op IV ABX- completed - ERythema around wound site- Kelfex 500mg TID x 5 days Acetaminophen (Tylenol Tab*) 650 mg PO Q6HR PRN PRN Reason: PAIN Albuterol (Ventolin Hfa Inhaler*) 1 puff INH Q4H PRN PRN Reason: SOB/WHEEZING Atorvastatin Calcium (Lipitor*) 5 mg PO QPM PINA PRN Reason: Protocol Last Admin: 11/25/17 16:44 Dose: 5 mg Cetirizine HCl (Zyrtec*) 10 mg PO QAM [facility] PRN Reason: Protocol Last Admin: 11/26/17 09:04 Dose: 10 mg Cholecalciferol (Vitamin D Tab*) 2,000 units PO QAM [facility] Last Admin: 11/26/17 09:04 Dose: 2,000 units Dicyclomine HCl (Bentyl Cap*) 10 mg PO TID PRN PRN Reason: IBS symptoms Diphenhydramine HCl (Benadryl Iv*) 25 mg IV Q6H PRN PRN Reason: itching Docusate Sodium (Colace Cap*) 100 mg PO BID [facility] Last Admin: 11/26/17 09:04 Dose: 100 mg Enoxaparin Sodium (Lovenox(*)) 40 mg SUBCUT Q24H [facility] Last Admin: 11/26/17 09:03 Dose: 40 mg Ferrous Sulfate (Ferrous Sulfate Tab*) 325 mg PO BID [facility] Last Admin: 11/26/17 09:04 Dose: 325 mg Lactated Ringer's (Lactated Ringers 1000 Ml Bag*) 1,000 mls @ 75 mls/hr IV PER RATE [facility] Last Admin: 11/23/17 03:37 Dose: 75 mls/hr Ketorolac Tromethamine (Toradol Inj*) 30 mg IV PUSH Q6H PRN PRN Reason: PAIN Last Admin: 11/23/17 22:55 Dose: 30 mg Lactobacillus Rhamnosus (Lactobacillus Acidophilus*) 1 tab PO [facility] Last Admin: 11/26/17 09:04 Dose: 1 tab Levothyroxine Sodium (Synthroid Tab*) 75 mcg PO 0600 [facility] Last Admin: 11/26/17 05:41 Dose: 75 mcg Morphine Sulfate (Morphine Vial*) 2 mg IV Q2H PRN PRN Reason: PAIN Multivitamins (Theragran Tab*) 1 tab PO DAILY [facility] Last Admin: 11/26/17 09:04 Dose: 1 tab Non-Formulary Medication (Krill Oil [Krill Oil]) 500 mg PO [facility] Last Admin: 11/26/17 09:06 Dose: Not Given Non-Formulary Medication (Melatonin [Melatonin]) 10 mg PO QPM PRN PRN Reason: SLEEP Omeprazole (Prilosec Cap*) 20 mg PO QAM [facility] Last Admin: 11/26/17 09:04 Dose: 20 mg Ondansetron HCl (Zofran Inj*) 4 mg IV Q6H PRN PRN Reason: nausea Oxycodone HCl (Roxycodone Tab*) 10 mg PO Q4H PRN PRN Reason: PAIN - SEVERE Last Admin: 11/25/17 21:19 Dose: 10 mg Oxycodone HCl (Roxycodone Tab*) 5 mg PO Q4H PRN PRN Reason: PAIN - MODERATE Last Admin: 11/26/17 10:12 Dose: 5 mg Sertraline HCl (Zoloft*) 25 mg PO QPM [facility] Last Admin: 11/25/17 16:44 Dose: 25 mg Trazodone HCl (Desyrel Tab*) 25 mg PO BEDTIME PRN PRN Reason: insomnia Laboratory Results - last 24 hr 11/26/17 05:00 Plt Count 417 MPV 7.5
[2017-11-26 11:33] VITALS: BP 125/70
== END 2017-11-26 15:15 | disposition home health service (06) | DRG 313 ==
LOC: AA 07:27 → SSU 13:09
PROVIDERS: ADMIT Orthopaedic Surgery; ATTEND Orthopaedic Surgery
PROC: 0SQC0ZZ Repair Right Knee Joint, Open Approach (ICD-10-PCS; 2017-11-22)
PROC: 0QUG0JZ Supplement Right Tibia with Synthetic Substitute, Open Approach (ICD-10-PCS; 2017-11-22)
PROC: 0QSG04Z Reposition Right Tibia with Internal Fixation Device, Open Approach (ICD-10-PCS; principal; 2017-11-22 08:45)
DX: S82.141A Displaced bicondylar fracture of right tibia, initial encounter for closed fracture (principal); J45.909 Unspecified asthma, uncomplicated; K21.9 Gastro-esophageal reflux disease without esophagitis; F41.9 Anxiety disorder, unspecified; E03.9 Hypothyroidism, unspecified; M19.91 Primary osteoarthritis, unspecified site; M25.469 Effusion, unspecified knee; G56.02 Carpal tunnel syndrome, left upper limb; E78.00 Pure hypercholesterolemia, unspecified; W17.89XA Other fall from one level to another, initial encounter; I10 Essential (primary) hypertension; S83.281A Other tear of lateral meniscus, current injury, right knee, initial encounter; Z98.51 Tubal ligation status; Z88.2 Allergy status to sulfonamides; Z82.49 Family history of ischemic heart disease and other diseases of the circulatory system; Y92.89 Other specified places as the place of occurrence of the external cause
CPT/HCPCS: 36415; 76001; 80048; 85014; 85018; 85049; A9270-GY; C1713; C1776; J0690; J1100; J1650; J1885; J2250; J2405; J2704; J3010